=== PATIENT | female | born 1950 | race Caucasian/White ===

== ENCOUNTER 2016-10-14 08:28 | Emergency (ER) | payer BC, OTHER ==
[~2016-10-14] VITALS: Ht 157.5 cm; Wt 68.0 kg
[~2016-10-14 08:28] MED LIST: ACET-654 PO; CIPR250T3 PO; SYNT88TA2 PO
[2016-10-14] MEDS ORDERED: CEFD1CAP8 PO (08:39)
[2016-10-14] MEDS ORDERED: BENZ100C5 PO (08:39)
[2016-10-14] MEDS ORDERED: PRED10TA PO (08:39)
[2016-10-14 10:02] LABS: BASO % 0.4 % (0.0-1.0); EOS # 0.1 K/mm3 (0.0-0.50); EOS % 1.1 % (0.0-3.0); LARGE UNSTAINED CELL # 0.1 K/mm3 (0.0-0.4); LARGE UNSTAINED CELL % 0.7 % (0.0-4.0); LYMPH # 1.1 K/mm3 (1.5-4.5); MEAN CORPUSCULAR HEMOGLOBIN 26.6 pg (27.0-33.0); MEAN CORPUSCULAR HGB CONC 32.2 g/dl (32.0-36.5); MEAN CORPUSCULAR VOLUME 82.7 fl (80.0-96.0); MONO # 0.5 K/mm3 (0.0-0.8); MONO % 4.3 % (0.0-5.0); NEUTROPHILS # 9.4 K/mm3 (1.8-7.7); NEUTROPHILS % 84.5 % (36.0-66.0); PLATELET COUNT, AUTOMATED 330 k/mm3 (150-450); RED CELL DISTRIBUTION WIDTH 13.6 % (11.5-14.5); WHITE BLOOD COUNT 11.2 K/mm3 (4.0-10.0)
[2016-10-14 10:11] LABS: INR 0.82
--- NOTE | 2016-10-14 10:14 | REP ---
Noncontrast brain CT study: History: CVA. Comparison study July 20, 2013. CT findings: Bone window settings demonstrate an intact bony calvarium. Vascular calcifications again noted in the carotid siphons. Visualized paranasal sinuses are clear. Lateral digital kinesiology professor view is unremarkable. There is a stable 8 mm calcification at the anterior falx just to the right of midline again noted. This is consistent with the right pericallosal artery aneurysm described on the CT angiography of the brain from August 28, 2013. There is no evidence of intracranial hemorrhage. No extra-axial fluid collection is seen. No infarct is seen. No mass or midline shift is observed. Impression: Vascular calcification noted in the distal carotid arteries as previously described. 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 No acute intracranial lesion. Signed by Maurizio Joyner MD 10/14/2016 10:44 A
[2016-10-14 10:19] LABS: ANION GAP 8 MEQ/L (8-16); BLOOD UREA NITROGEN 14 MG/DL (7-18); CALCIUM LEVEL 9.1 MG/DL (8.8-10.2); CARBON DIOXIDE LEVEL 28 MEQ/L (21-32); CHLORIDE LEVEL 105 MEQ/L (98-107); CREATININE FOR GFR 0.82 MG/DL (0.55-1.02); FREE T4 1.55 NG/DL (0.76-1.46); GLOMERULAR FILTRATION RATE > 60.0 (>45); GLUCOSE, FASTING 103 MG/DL (80-110); POTASSIUM SERUM 4.1 MEQ/L (3.5-5.1); SODIUM LEVEL 141 MEQ/L (136-145)
--- NOTE | 2016-10-14 10:23 | REP ---
AP PORTABLE CHEST: 10/14/2016 COMPARISON: Chest x-ray 10/07/2016, 10/17/2012. FINDINGS: Lungs are well inflated and without infiltrate, effusion, atelectasis, or mass. CP angles sharply defined. No lateral pleural thickening. The heart, mediastinal and hilar contours are normal. Aorta intact and normal for age. Airway midline. There are minor degenerative changes of the AC joints and spine. No free air. IMPRESSION: 1. No acute cardiopulmonary disease. Stable chest. Signed by Malachi Smith MD 10/14/2016 03:29 P
--- NOTE | 2016-10-14 13:41 | REP ---
MRI study brain without contrast: History: TIA. Comparison brain MRI study is from March 24, 2007. Technique: Axial and sagittal imaging planes are utilized for T1 and T2-weighted scans. Sequences include spin-echo, fast spin echo, FLAIR, and diffusion weighted sequences. MRI findings: No bony calvarial lesion is seen. Craniocervical junction and upper cervical cord are normal in appearance. No intraorbital abnormality is seen. The skull base soft tissues are unremarkable and symmetric. There is no MR evidence of significant paranasal sinus disease. There are scattered T2 hyperintense foci in the periventricular and subcortical white matter of the supratentorial brain bilaterally. These are slightly more numerous but otherwise unchanged when compared with the prior exam of March 24, 2007. There is no evidence of intracranial hemorrhage. Diffusion-weighted scans show no evidence of acute ischemia. There is a flow void on T2-weighted scans in the known pericallosal artery aneurysm. This flow void measures 5 mm. There is also a flow void from the left middle cerebral artery trifurcation aneurysm. This is also unchanged from August 28, [address] angiography. There is no evidence of current or prior intracranial hemorrhage. No extra-axial fluid collection or infarction is seen. Impression: Two polanco aneurysms are again noted unchanged from comparison studies; right pericallosal artery, and left middle cerebral trifurcation aneurysms. There is no evidence of acute ischemia or hemorrhage. No acute intracranial abnormality. Signed by Maurizio Joyner MD 10/14/2016 02:37 P
[2016-10-14] MEDS ORDERED: ASPI81TA85 PO (13:51)
--- NOTE | 2016-10-14 13:52 | ECGEPIP ---
Stationary ECG Study [facility] - ED Test Date: 2016-10-14 Pat Name: LOW MONZON Department: Room: - Gender: F In[employer] Agent: : 1950 Requested By: Hussain Argueta Order Number: [id number] Reading MD: Ashley Prince Measurements Intervals [place] Rate: 67 P: 34 [place]: 165 QRS: 42 QRSD: 84 T: 42 QT: 396 QTc: 420 Interpretive Statements SINUS RHYTHM NO PRIOR FOR COMPARISON Electronically Signed On 10-14-2016 13:51:55 EDT by Ashley Prince
[2016-10-14 14:25] VITALS: BP 126/75
--- NOTE | 2016-10-16 06:44 | ED PDOC ---
Post-Departure Follow-Up dr wallace faxed formal report of ct head, mri brain for fu Maria E Lagos MD Oct 16, 2016 06:44
== END 2016-10-14 14:38 | disposition home or self-care (01) ==
LOC: M ED 10:25
DX: G45.9 Transient cerebral ischemic attack, unspecified (principal); F41.9 Anxiety disorder, unspecified; E78.5 Hyperlipidemia, unspecified; E03.9 Hypothyroidism, unspecified; Z79.82 Long term (current) use of aspirin; Z79.899 Other long term (current) drug therapy; Z79.52 Long term (current) use of systemic steroids; Z88.0 Allergy status to penicillin; Z88.2 Allergy status to sulfonamides; Z88.8 Allergy status to other drugs, medicaments and biological substances

== ENCOUNTER → 2016-10-22 | Outpatient (REF) | payer OTHER ==
[~2016-10-22] MED LIST changes: +ASPI81TA85 PO; +BENZ100C5 PO; +CEFD1CAP8 PO; +PRED10TA PO
[2016-10-22 18:06] LABS: ALBUMIN 3.4 GM/DL (3.2-5.2); ALBUMIN/GLOBULIN RATIO 1.06 (1.00-1.93); ALKALINE PHOSPHATASE 160 U/L (45-117); ALT/SGPT 25 U/L (12-78); ANION GAP 6 MEQ/L (8-16); AST/SGOT 12 U/L (15-37); BILIRUBIN,TOTAL 0.6 MG/DL (0.2-1.0); BLOOD UREA NITROGEN 12 MG/DL (7-18); CARBON DIOXIDE LEVEL 30 MEQ/L (21-32); CHLORIDE LEVEL 101 MEQ/L (98-107); CHOLESTEROL LEVEL 232 MG/DL (<200); CREATININE FOR GFR 0.85 MG/DL (0.55-1.02); GLOMERULAR FILTRATION RATE > 60.0 (>45); GLUCOSE, FASTING 101 MG/DL (80-110); POTASSIUM SERUM 4.2 MEQ/L (3.5-5.1); SODIUM LEVEL 137 MEQ/L (136-145); TOTAL PROTEIN 6.6 GM/DL (6.4-8.2); TRIGLYCERIDES LEVEL 119 MG/DL (<150)
== END ==
LOC: M SFHCCAPE 16:10
PROVIDERS: ATTEND Physician Assistant
DX: E78.2 Mixed hyperlipidemia (principal)

== ENCOUNTER 2017-01-13 12:46 | Observation (INO) | payer MEDICARE, BC, OTHER ==
[~2017-01-13] VITALS: Ht 157.5 cm; Wt 66.5 kg
[~2017-01-13 12:46] MED LIST changes: -PRED10TA PO; +PRED10TA2 PO
[2017-01-13] MEDS ORDERED: LEVO100T5 PO (13:04)
[2017-01-13 15:41] LABS: BASO % 0.4 % (0.0-1.0); EOS # 0.2 K/mm3 (0.0-0.50); EOS % 2.1 % (0.0-3.0); LARGE UNSTAINED CELL # 0.1 K/mm3 (0.0-0.4); LARGE UNSTAINED CELL % 1.2 % (0.0-4.0); LYMPH # 1.3 K/mm3 (1.5-4.5); LYMPH % 15.2 % (24.0-44.0); MEAN CORPUSCULAR HEMOGLOBIN 25.4 pg (27.0-33.0); MEAN CORPUSCULAR HGB CONC 32.5 g/dl (32.0-36.5); MEAN CORPUSCULAR VOLUME 78.1 fl (80.0-96.0); MONO # 0.4 K/mm3 (0.0-0.8); MONO % 4.8 % (0.0-5.0); NEUTROPHILS # 6.1 K/mm3 (1.8-7.7); NEUTROPHILS % 76.2 % (36.0-66.0); PLATELET COUNT, AUTOMATED 370 k/mm3 (150-450); RED CELL DISTRIBUTION WIDTH 14.3 % (11.5-14.5)
[2017-01-13] MEDS ORDERED: ASPI1TAB PO (15:42)
[2017-01-13] MEDS ORDERED: PROBCAP4 PO (15:42)
[2017-01-13] MEDS ORDERED: NASA1SPR (15:42)
[2017-01-13] MEDS ORDERED: SALI0.6523 (15:42)
[2017-01-13 15:48] LABS: INR 1.18
[2017-01-13 16:10] LABS: ANION GAP 8 MEQ/L (8-16); BLOOD UREA NITROGEN 10 MG/DL (7-18); CALCIUM LEVEL 9.3 MG/DL (8.8-10.2); CARBON DIOXIDE LEVEL 28 MEQ/L (21-32); CHLORIDE LEVEL 105 MEQ/L (98-107); CREATININE FOR GFR 0.74 MG/DL (0.55-1.02); GLOMERULAR FILTRATION RATE > 60.0 (>45); GLUCOSE, FASTING 100 MG/DL (80-110); POTASSIUM SERUM 3.9 MEQ/L (3.5-5.1); SODIUM LEVEL 141 MEQ/L (136-145)
--- NOTE | 2017-01-13 16:47 | REP ---
CT HEAD WITHOUT CONTRAST: HISTORY: Infarction. COMPARISON: 10/14/2016 Areas of decreased attenuation are present in the periventricular white matter. This represents small vessel ischemic disease. There is no intraparenchymal hemorrhage, mass or midline shift. The ventricular system is normal in appearance. There is no extracerebral collection. A small calcification is present in the anterior interhemispheric fissure in the region of the pericallosal arteries. This represents calcification in a known pericallosal artery aneurysm. The visualized sinuses are clear. IMPRESSION: 1. Small vessel ischemic disease. 2. There is a small calcification in the anterior interhemispheric fissure at the level of the pericallosal arteries. This represents calcification in a known pericallosal artery aneurysm. Signed by Kavon Iniguez MD 01/13/2017 04:54 P
[2017-01-13] MEDS ORDERED: ACETAMINOPHEN TAB 650MG DOSE (2X325MG) PO PRN (18:15)
[2017-01-13] MEDS ORDERED: BISACODYL 5 MG TAB PO PRN (18:15)
[2017-01-13] MEDS ORDERED: ONDANSETRON 4MG/2ML VIAL (J2405) IV PRN (18:15)
[2017-01-13] MEDS ORDERED: LACTOBACILLUS ACIDOPHILUS CAP (BACID) PO PRN (18:30)
--- NOTE | 2017-01-13 20:10 | REPUSA ---
CLINICAL HISTORY: R/o TIA. TECHNIQUE: MRI of the brain was performed without administration of intravenous contrast material. T1 spine echo, T2 fast spin echo, DWI and FLAIR sequences were obtained in sagittal, axial and coronal planes. FINDINGS: The sella and parasellar regions are unremarkable in appearance. The corpus callosum and cerebellar t onsils are of normal configuration and position. There are no intra or extra-axial collections. There is no mass effect or midline shift. There is no evidence of hematoma formation. There is no hydrocep halus. There is no restricted diffusion noted. The brain stem shows no mass effects, infarcts or hemorrhage. There are no cerebellopontine tumors. T he acoustic nerves are symmetrical. No cerebellar intra-axial pathology delineated. The fourth ventri gala and aqueduct are normal. No abnormalities of the optic nerves are identified. No dural or subdura l masses or collections are detected. There is evidence for generalized symmetrical dilatation of the ventricles and cortical sulci consist ent with parenchymal atrophy. There are bilateral periventricular and subcortical T2 and FLAIR hyperintensities compatible with chr onic white matter ischemic disease. The VII and VIII nerve bundles are visualized and are unremarkable in appearance. Mucosal thickening is seen involving bilateral ethmoid and maxillary sinuses compatible with chronic sinusitis. IMPRESSION: 1. Generalized age-appropriate parenchymal atrophy. 2. Bilateral periventricular and subcortical white matter chronic ischemic changes. 3. Chronic ethmoid and maxillary sinusitis. 4. No evidence of acute intracranial pathology. 5. Please see MRA report for additional chronic findings. Thank you for your kind referral of this patient.
--- NOTE | 2017-01-13 20:40 | REPUSA ---
CLINICAL HISTORY: Arm numbness, possible TIA, aneurysm. TECHNIQUE: MRA of the [place] of [place] was performed utilizing 3D [id number] technique without I V contrast material. COMMENTS: Comparison is made with the prior study dated 07/20/2013. Note again is made of a 7 x 5 mm aneurysm originated from the left middle cerebral artery trifurcatio n. There is another small aneurysm originated from the cavernous right ICA measuring approximately 2 mm. The supraclinoid portions of the internal carotid arteries are otherwise of normal shape. The normal bifurcation is seen. The middle cerebral arteries are otherwise unremarkable in appearance. The po sterior circulation is visualized and shows no evidence of occlusion or aneurysm formation. The basi lar tip is seen and shows no aneurysm formation. There is no evidence of beading to suggest vasculit is. IMPRESSION: No interval change. 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 There is another sma ll aneurysm originated from the cavernous right ICA measuring approximately 2 mm. Thank you for your kind referral of this patient. We appreciate the opportunity to participate in thi s patient's care.
[2017-01-13 21:05] VITALS: BP 138/65
--- NOTE | 2017-01-13 21:56 | ECGEPIP ---
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
[2017-01-13 23:59] VITALS: BP 134/59
[2017-01-14] MEDS ORDERED: SLF 3 ML SYR IV PRN (04:30)
[2017-01-14 04:45] VITALS: BP 108/54
[2017-01-14] MEDS ORDERED: SLF 3 ML SYR IV SCH (06:00)
[2017-01-14] MEDS ORDERED: LEVOTHYROXINE 100MCG TABLET (0.1MG) PO SCH (06:00)
[2017-01-14 06:26] LABS: BASO % 0.5 % (0.0-1.0); EOS # 0.2 K/mm3 (0.0-0.50); LARGE UNSTAINED CELL # 0.1 K/mm3 (0.0-0.4); LARGE UNSTAINED CELL % 1.8 % (0.0-4.0); LYMPH # 1.2 K/mm3 (1.5-4.5); LYMPH % 14.9 % (24.0-44.0); MEAN CORPUSCULAR HEMOGLOBIN 25.1 pg (27.0-33.0); MEAN CORPUSCULAR HGB CONC 31.9 g/dl (32.0-36.5); MEAN CORPUSCULAR VOLUME 78.6 fl (80.0-96.0); MONO # 0.5 K/mm3 (0.0-0.8); MONO % 5.7 % (0.0-5.0); PLATELET COUNT, AUTOMATED 351 k/mm3 (150-450); RED CELL DISTRIBUTION WIDTH 14.3 % (11.5-14.5)
[2017-01-14 06:49] LABS: ALBUMIN 2.9 GM/DL (3.2-5.2); ALBUMIN/GLOBULIN RATIO 0.71 (1.00-1.93); ALKALINE PHOSPHATASE 133 U/L (45-117); ALT/SGPT 21 U/L (12-78); ANION GAP 5 MEQ/L (8-16); AST/SGOT 13 U/L (15-37); BILIRUBIN,TOTAL 0.4 MG/DL (0.2-1.0); BLOOD UREA NITROGEN 10 MG/DL (7-18); CALCIUM LEVEL 9.3 MG/DL (8.8-10.2); CARBON DIOXIDE LEVEL 29 MEQ/L (21-32); CHLORIDE LEVEL 104 MEQ/L (98-107); CREATININE FOR GFR 0.63 MG/DL (0.55-1.02); GLOMERULAR FILTRATION RATE > 60.0 (>45); GLUCOSE, FASTING 92 MG/DL (80-110); POTASSIUM SERUM 3.9 MEQ/L (3.5-5.1); SODIUM LEVEL 138 MEQ/L (136-145)
--- NOTE | 2017-01-14 07:26 | HPE ---
DATE OF ADMISSION: 01/13/2017 PRIMARY CARE PROVIDER: Donna Young at [place] NEUROLOGIST: Dr. Millan OFFSHORING MANAGER: Dr. Blanton NEUROSURGEON: Dr. Gil who was last seen three years ago. CHIEF COMPLAINT: Right upper extremity numbness and tingling. HISTORY OF PRESENT ILLNESS: Ms. Suarez is a 66-year-old female who was driving this afternoon at around 1:30 when she noticed numbness and tingling on her left fingers. The patient expressed that numbness and tingling continued to expand to her wrist and middle of her left forearm. The patient expressed that episode lasted about 10 to 15 minutes. When this has happened the patient expressed that she decided to come to the ER. The patient was driving with his son and his son did not notice any confusion, dysarthria, dystonia. The patient also was not confused. Did not loss her consciousness. The patient did not lose bowel or bladder control. The patient did not have aphasia, however, the patient was mildly scared due to presentation of symptoms. The patient, however, expressed that in the morning around 7:30 she had near-syncope around 7:30 a.m. when she was sitting down and playing with her tablet, playing chess on her tablet. The patient expressed that it only lasted for a few minutes when she had lightheadedness and dizziness as well as her vision going blank. The patient expressed that these symptoms started about in July, however, for the past two weeks, it happens on and off, however, for the past two weeks and is not related to her position and it could happen in any position, however, she has noticed that it mostly happens when she looks down and looks straight. The patient has been diagnosed with brain aneurysm and is seen by Dr. Gil three years ago, who is a neurosurgeon. He offered the patient a surgical solution, however, the patient rejected. The patient only seen by Dr. Millan recently who offered her sleep study, however, the patient refused because the patient expressed that she cannot sleep anywhere else besides her home. The patient's latest MRI is on 10/14/2016, which indicated two polanco aneurysms which are unchanged from comparison studies to March 24, 2007. The patient denies nausea or vomiting during the numbness of her right upper extremity this afternoon. The patient also denies vision changes or hearing changes. The patient denies any numbness or weakness in her lower extremities or her left upper extremity. ALLERGIES: PENICILLIN causes rash. MACROBID causes rash. SULFA causes rash. ZETIA causes bloating. PAST MEDICAL HISTORY: 1. Hypothyroidism. 2. Hyperlipidemia. 3. Transient ischemic attack (TIA). PAST SURGICAL HISTORY: 1. Tonsillectomy. 2. Colonoscopy. 3. Angiogram [facility] of the right lower extremity in November 2012. SOCIAL HISTORY: The patient lives with her and her son. The patient expressed that she only smoked when she was 19 years old for one year about 3 to 4 cigarettes a day. The patient expressed that she drinks alcohol occasionally. The patient denies illicit drug use. The patient has no pets. The patient had traveled to [place]. The patient two sons who are healthy. FAMILY HISTORY: The patient has two sisters and five brothers, however, the patient expressed that she believes that they are healthy. The patient's father is still alive, however, the patient does not know about his health. The patient's mother lives with her sister, however, the patient does not know about her health. HOME MEDICATIONS: - aspirin 81 mg by mouth daily - probiotics 1 capsule by mouth daily as needed constipation - Synthroid 100 mcg by mouth daily - Nasacort allergy one spray NA daily - saline nasal spray 1 spray NA daily REVIEW OF SYSTEMS: REVIEW OF SYSTEMS: GENERAL: The patient denies fevers, chills, night sweats, weight loss, weight gain. HEENT: At this time the patient denies acute vision or hearing changes. The patient also denies lightheadedness and dizziness, however, this morning, around 7:00 a.m. the patient has a history of near-syncope episode. However, the patient denies losing her consciousness. The patient denies acute problem with chewing food or sinusitis. NECK: The patient has no loss of motion of her neck. HEART: The patient denies palpitations, racing, or skipping heartbeat, chest pain. LUNGS: The patient denies shortness of breath, wheezing or coughing. ABDOMEN: The patient denies abdominal pain, nausea, vomiting, diarrhea, constipation, melena, hematochezia or hematemesis. EXTREMITIES: The patient denies swelling, numbness or tingling of her upper or lower extremities, however, around 1:30 the patient has numbness and tingling of her right upper extremity. NEUROLOGICAL: The patient has been diagnosed with TIA, however, the patient denies history of CVA type activities. PHYSICAL EXAMINATION: VITAL SIGNS: Temperature 98.5, pulse 84, respiratory rate 18, blood pressure 165/74, pulse oximetry 95 on room air. GENERAL APPEARANCE: The patient was lying in bed, in no acute distress. The patient was awake, alert and oriented to time, place and person. HEENT: Normocephalic, atraumatic. Pupils equal reactive to light. Oral mucosa is moist. NECK: Soft, supple. No lymphadenopathy or thyromegaly. No jugular venous distention (JVD). HEART: Regular rate and rhythm. Normal S1, S2. ABDOMEN: Soft, nontender. Positive bowel sounds in all quadrants. EXTREMITIES: No lower extremity edema. +2 pulses in both lower extremities. The patient has normal range of motion both upper and lower extremities. NEUROLOGICAL: Cranial nerves II through XII was intact. No focal deficiencies. LUNGS: Clear breath sounds bilaterally. Equal air movement. LABORATORY DATA: WBC 8, RBC 4.94, hemoglobin 12.5, hematocrit 36.6, MCV 78.1, MCH 25.4, MCHC 32.5, RDW 14.3, platelet count 370, neutrophil percentage 76.2, lymphocyte percentage 15.2, monocyte percentage 4.8, eosinophil percentage 2.1, basophil percentage 0.4, leucocyte percentage 1.2. PT 15.2, INR 1.18, APTT 28.6. Sodium 141, potassium 3.9, chloride 105, carbon dioxide 28, anion gap 8, BUN 10, creatinine 0.74. Glomerular filtration rate more than 60. Fasting glucose 100. Calcium 9.3. Total creatine kinase 67. CK-MB 1. CK-MB Rel index 1.49. Troponin I less than 0.02. IMAGING TECHNIQUES: CT of the head without contrast shows small vessel ischemic disease. There is a small calcification in the anterior interhemispheric fissure at the level of the pericallosal arteries. This represents calcifications. Is a known pericallosal artery aneurysm. ASSESSMENT AND PLAN: 1. Numbness and tingling of the right upper extremity. This could be secondary to aneurysms. That was indicated in the MRI on the previous studies. Due to increase of her symptoms it is possible that the size of the aneurysm has been changing. Therefore we have ordered MRI/MRA of the head and the result is pending at this time. Also it is possible that patient has been experiencing TIA. Other possibilities include carpal tunnel syndrome. We have requested medical file to be transferred from Dr. Millan's office (neurology) and Dr. Blanton (cardiology). Cardiac marker was negative. EKG shows sinus rhythm. We will repeat the cardiac marker for one more study in six hours. CT did not show any hemorrhagic finding. At this time we will continue patient on aspirin 81 mg. The patient has not been started on statin due to having allergic reaction to a statin. Also, the patient is admitted to PCU and we will continue with neuro check every 4 hours. 2. Hypothyroidism. Will continue the patient on home dosage of Synthroid (100 mcg by mouth daily). Also I have ordered TSH level and the result is pending at this time. 3. Deep venous thrombosis (DVT) prophylaxis. The patient is on Lovenox. 4. History of hyperlipidemia. Lipid panel which was done on 10/22/2016 indicated cholesterol of 232 and LDL cholesterol of 149.2. At this time the patient is not on statin due to allergic reaction (muscle ache). We will continue the patient on aspirin. 5. Near-syncope episodes. The patient is following with Dr. Blanton. We have requested the medical records to be transferred. The patient admitted to the PCU. EKG shows sinus rhythm. Cardiac marker was negative. Dr. Blanton has performed echocardiogram as well as stress test. We will followup with the medical file. At this time, the patient is stable.
[2017-01-14 09:00] VITALS: BP 118/60
[2017-01-14] MEDS ORDERED: ASPIRIN 81 MG ENTERIC TAB PO SCH (09:00)
[2017-01-14] MEDS ORDERED: PREVNAR 13 VACCINE SYRINGE (CPT CODE:90670) IM ONE (09:00)
[2017-01-14] MEDS ORDERED: ENOXAPARIN 40 MG/0.4 ML SYRINGE (J1650) SC SCH (21:00)
--- NOTE | 2017-01-15 06:42 | DSES ---
DATE OF ADMISSION: 01/13/2017 DATE OF DISCHARGE: 01/14/2017 PRIMARY CARE PHYSICIAN: Donna Young MD at [place] NEUROLOGISTS: Dr. Millan MANAGER ANIMATION: Cristian Blanton MD NEUROSURGEON: Dr. Gil, seen three years ago. PRIMARY DISCHARGE DIAGNOSIS: 1. Right upper extremity numbness and tingling. Negative cerebrovascular accident (CVA) on Magnetic Resonance Imaging (MRI). Possible transient ischemic attack (TIA) with all symptoms resolved at discharge. 2. Chronic maxillary sinusitis. 3. 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 4. 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 5. Hypertension. 6. Hyperlipidemia. DISCHARGE MEDICATIONS: - aspirin 81 mg daily - Synthroid 100 mcg daily - Nasacort one spray daily - saline nasal spray one spray daily HOSPITAL COURSE: This is a 66-year-old female with history of hypertension, transient ischemic attack (TIA), hyperlipidemia, presents to the emergency room with complaints of right upper extremity numbness and tingling, starting at 1:30 p.m. lasting for about 10 to 15 minutes while she was driving her son. No loss of consciousness. No aphasia. No upper and lower extremity weakness. The patient refused surgical resection of her chronic aneurysms and had been seen by Dr. Gil in [place] three years ago, neurosurgery. At this time, the patient was worked up for possible cerebrovascular accident (CVA) or transient ischemic attack (TIA), Magnetic Resonance Imaging (MRI), Magnetic Resonance Angiography (MRA). She has no acute cerebrovascular accident (CVA). The patient does have a known chronic maxillary and ethmoid sinusitis. Magnetic Resonance Angiography (MRA) of the brain shows aneurysm 7 x 5 mm in the left middle cerebral artery trifurcation with another small one in the cavernous right internal carotid artery measuring 2 mm. She was instructed to follow up with Dr. Gil as an outpatient to reconsider surgical resection. LABORATORY ON DISCHARGE: White count 8, hemoglobin 12, hematocrit 38, platelet count is 351. Sodium 138, potassium 3.8, chloride 104, bicarbonate 29, BUN 10, creatine 0.63, glucose of 92. IMAGING STUDY: Magnetic Resonance Imaging (MRI) of the brain: No acute cerebrovascular accident (CVA). Bilateral paraventricular subcortical white matter chronic ischemic changes. Chronic ethmoid, maxillary sinusitis. Magnetic Resonance Angiography (MRA) chronic findings: Magnetic Resonance Angiography (MRA) of the brain shows 7 x 5 mm aneurysm of left middle cerebral artery trifurcation, small aneurysm cavernous right internal carotid artery measuring 2 mm. TIME SPENT ON DISCHARGE: 30 minutes.
== END 2017-01-14 12:21 | disposition home or self-care (01) ==
LOC: M ED 12:46 → M ED INP 18:09 → M PCU 21:06
PROVIDERS: ADMIT Internal Medicine; ATTEND General Practice
DX: R20.8 Other disturbances of skin sensation (principal); G45.9 Transient cerebral ischemic attack, unspecified; J32.0 Chronic maxillary sinusitis; I67.1 Cerebral aneurysm, nonruptured; I10 Essential (primary) hypertension; E78.4 Other hyperlipidemia; Z79.82 Long term (current) use of aspirin; E03.9 Hypothyroidism, unspecified; R55 Syncope and collapse; Z23 Encounter for immunization; Z79.899 Other long term (current) drug therapy; Z88.0 Allergy status to penicillin; Z88.2 Allergy status to sulfonamides; Z88.8 Allergy status to other drugs, medicaments and biological substances; Z87.891 Personal history of nicotine dependence
CPT/HCPCS: 36415; 70450; 70544; 70551; 80048; 80053; 82550; 82553; 84443; 84484; 85025; 85610; 85730; 86850; 86900; 86901; 90471; 90670; 93005; 93041; 94760; 97161; 99285; G0378; G8978; G8979; G8980

== ENCOUNTER → 2017-02-17 | Outpatient (REF) | payer MEDICARE, OTHER ==
[~2017-02-17] MED LIST changes: +ASPI1TAB PO; +LEVO100T5 PO; +NASA1SPR; +PROBCAP4 PO; +SALI0.6523
== END ==
LOC: M LAB REF 16:26
PROVIDERS: ATTEND Psychiatry & Neurology Neurology
DX: I63.9 Cerebral infarction, unspecified (principal)

== ENCOUNTER → 2017-02-17 | Outpatient (REF) | payer MEDICARE, OTHER | LOC: M LAB REF 16:24 | PROVIDERS: ATTEND Internal Medicine Endocrinology, Diabetes & Metabolism | DX: E03.9 Hypothyroidism, unspecified (principal) ==

== ENCOUNTER → 2017-11-30 | Outpatient (REF) | payer MEDICARE, OTHER ==
[2017-11-30 18:47] LABS: BASO % 0.5 % (0.0-1.0); EOS # 0.2 10^3/uL (0.0-0.50); EOS % 3.3 % (0.0-3.0); HEMATOCRIT 43.4 % (36.0-47.0); HEMOGLOBIN 13.6 g/dl (12.0-15.5); IMMATURE GRANULOCYTE % 0.3 % (0-3.0); LYMPH # 1.2 10^3/uL (1.5-4.5); MEAN CORPUSCULAR HGB CONC 31.3 g/dl (32.0-36.5); MEAN CORPUSCULAR VOLUME 86.1 fl (80.0-96.0); MONO # 0.5 10^3/uL (0.0-0.8); MONO % 7.5 % (0.0-5.0); NEUTROPHILS # 4.4 10^3/uL (1.8-7.7); NEUTROPHILS % 69.4 % (36.0-66.0); PLATELET COUNT, AUTOMATED 249 10^3/uL (150-450); RED BLOOD COUNT 5.04 10^6/uL (4.00-5.40); RED CELL DISTRIBUTION WIDTH 15.1 % (11.5-14.5); WHITE BLOOD COUNT 6.4 10^3/uL (4.0-10.0)
[2017-11-30 18:58] LABS: ALBUMIN 3.8 GM/DL (3.2-5.2); ALBUMIN/GLOBULIN RATIO 1.23 (1.00-1.93); ALKALINE PHOSPHATASE 173 U/L (45-117); ALT/SGPT 27 U/L (12-78); ANION GAP 7 MEQ/L (8-16); AST/SGOT 16 U/L (7-37); BILIRUBIN,TOTAL 0.4 MG/DL (0.2-1.0); BLOOD UREA NITROGEN 10 MG/DL (7-18); CARBON DIOXIDE LEVEL 28 MEQ/L (21-32); CHLORIDE LEVEL 107 MEQ/L (98-107); CHOLESTEROL LEVEL 263 MG/DL (<200); CHOLESTEROL RISK RATIO 6.414 (<5); CREATININE FOR GFR 0.92 MG/DL (0.55-1.30); GLOMERULAR FILTRATION RATE > 60.0 (>45); GLUCOSE, FASTING 92 MG/DL (70-100); HDL CHOLESTEROL 41 MG/DL (>40); LDL CHOLESTEROL 162.2 MG/DL (<100); NON-HDL-C 222 MG/DL; POTASSIUM SERUM 4.2 MEQ/L (3.5-5.1); SODIUM LEVEL 142 MEQ/L (136-145); TOTAL PROTEIN 6.9 GM/DL (6.4-8.2); TRIGLYCERIDES LEVEL 299 MG/DL (<150)
== END ==
LOC: M SFHCCAPE 07:06
DX: E78.5 Hyperlipidemia, unspecified (principal); E03.9 Hypothyroidism, unspecified
CPT/HCPCS: 84443

== ENCOUNTER → 2017-12-14 | Outpatient (REF) | payer MEDICARE, OTHER ==
[2017-12-14 16:54] LABS: ALKALINE PHOSPHATASE 156 U/L (45-117); GAMMA GLUTAMYLTRANSPEPTIDASE 33 U/L (5-55)
[2017-12-14 18:06] LABS: LABILE ALKPHOS 93 U/L; STABLE ALKPHOS 63 U/L
[2017-12-14 18:08] LABS: % LABILE ALKALINE PHOSPHATASE 59.6 %
== END ==
LOC: M SFHCCAPE 07:52
DX: R74.8 Abnormal levels of other serum enzymes (principal)
CPT/HCPCS: 84078

== ENCOUNTER → 2017-12-21 | Outpatient (REF) | payer MEDICARE, OTHER ==
[2017-12-24 00:10] LABS: H PYLORI STOOL ANTIGEN Negative (Negative)
== END ==
LOC: M LAB REF 16:57
DX: R14.1 Gas pain (principal); Z86.010 Personal history of colon polyps
CPT/HCPCS: 87338

== ENCOUNTER → 2018-12-01 | Outpatient (REF) | payer MEDICARE, OTHER ==
[~2018-12-01] MED LIST changes: -ASPI1TAB PO; +ASPI81TA26 PO; +BENZ-18 PO; -BENZ100C5 PO; -SALI0.6523; +SALI0.6528
[2018-12-01 17:19] LABS: ALBUMIN 3.5 GM/DL (3.2-5.2); ALT/SGPT 31 U/L (12-78); BILIRUBIN,TOTAL 0.6 MG/DL (0.2-1.0); BLOOD UREA NITROGEN 9 MG/DL (7-18); CALCIUM LEVEL 8.9 MG/DL (8.8-10.2); CARBON DIOXIDE LEVEL 30 MEQ/L (21-32); CHLORIDE LEVEL 107 MEQ/L (98-107); CHOLESTEROL LEVEL 244 MG/DL (<200); CREATININE FOR GFR 0.86 MG/DL (0.55-1.30); GAMMA GLUTAMYLTRANSPEPTIDASE 37 U/L (5-55); GLOMERULAR FILTRATION RATE > 60.0 (>45); GLUCOSE, FASTING 98 MG/DL (70-100); HDL CHOLESTEROL 40 MG/DL (>40); LDL CHOLESTEROL 165 MG/DL (<100); NON-HDL-C 204 MG/DL; POTASSIUM SERUM 4.3 MEQ/L (3.5-5.1); SODIUM LEVEL 142 MEQ/L (136-145); THYROID STIMULATING HORMONE 0.755 uIU/ML (0.358-3.740); TOTAL PROTEIN 6.7 GM/DL (6.4-8.2); TRIGLYCERIDES LEVEL 193 MG/DL (<150)
[2018-12-01 17:31] LABS: BASO % 0.5 % (0.0-1.0); EOS # 0.2 10^3/uL (0.0-0.50); EOS % 3.2 % (0.0-3.0); HEMATOCRIT 44.3 % (36.0-47.0); HEMOGLOBIN 14.2 g/dl (12.0-15.5); LYMPH # 1.2 10^3/uL (1.5-4.5); LYMPH % 19.9 % (24.0-44.0); MEAN CORPUSCULAR HEMOGLOBIN 28.7 pg (27.0-33.0); MEAN CORPUSCULAR HGB CONC 32.1 g/dl (32.0-36.5); MEAN CORPUSCULAR VOLUME 89.5 fl (80.0-96.0); MONO # 0.4 10^3/uL (0.0-0.8); MONO % 6.7 % (0.0-5.0); NEUTROPHILS # 4.2 10^3/uL (1.8-7.7); NEUTROPHILS % 69.4 % (36.0-66.0); PLATELET COUNT, AUTOMATED 215 10^3/uL (150-450); RED BLOOD COUNT 4.95 10^6/uL (4.00-5.40)
[2018-12-01 17:38] LABS: HEMOGLOBIN A1c 5.9 %
== END ==
LOC: M SFHCCAPE 07:22
PROVIDERS: ATTEND Physician Assistant
DX: E78.5 Hyperlipidemia, unspecified (principal); E03.9 Hypothyroidism, unspecified; R74.8 Abnormal levels of other serum enzymes; R73.9 Hyperglycemia, unspecified

== ENCOUNTER → 2019-01-11 | Outpatient (REF) | payer MEDICARE, OTHER ==
[2019-01-11 17:57] LABS: FREE T4 1.42 NG/DL (0.76-1.46); THYROID STIMULATING HORMONE 1.68 uIU/ML (0.358-3.740)
[2019-01-14 08:22] LABS: Alkaline Phosphatase Iso-Bone 55 % (14-68); Alkaline Phosphatase Iso-Intes 9 % (0-18); Alkaline Phosphatase Iso-Liver 36 % (18-85); TOTAL ALK PHOS 123 IU/L (39-117)
== END ==
LOC: M SFHCCAPE 07:45
PROVIDERS: ATTEND Physician Assistant
DX: R74.8 Abnormal levels of other serum enzymes (principal); E03.9 Hypothyroidism, unspecified

== ENCOUNTER → 2019-07-18 | Outpatient (REF) | payer MEDICARE, OTHER ==
[2019-07-18 16:33] LABS: BASO # 0.1 10^3/uL (0.0-0.2); BASO % 0.7 % (0.0-1.0); EOS # 0.2 10^3/uL (0.0-0.5); HEMATOCRIT 45.6 % (36.0-47.0); HEMOGLOBIN 13.7 g/dl (12.0-15.5); LYMPH # 1.5 10^3/uL (1.5-5.0); LYMPH % 21.6 % (24.0-44.0); MEAN CORPUSCULAR HEMOGLOBIN 26.8 pg (27.0-33.0); MEAN CORPUSCULAR VOLUME 89.2 fl (80.0-96.0); MONO # 0.5 10^3/uL (0.0-0.8); MONO % 7.2 % (0.0-5.0); NEUTROPHILS # 4.7 10^3/uL (1.5-8.5); NEUTROPHILS % 67.1 % (36.0-66.0); PLATELET COUNT, AUTOMATED 243 10^3/uL (150-450); RED BLOOD COUNT 5.11 10^6/uL (4.00-5.40); WHITE BLOOD COUNT 7.1 10^3/uL (4.0-10.0)
[2019-07-18 16:40] LABS: ALBUMIN 3.7 GM/DL (3.2-5.2); ALT/SGPT 23 U/L (12-78); BILIRUBIN,TOTAL 0.4 MG/DL (0.2-1.0); BLOOD UREA NITROGEN 9 MG/DL (7-18); CALCIUM LEVEL 9.1 MG/DL (8.8-10.2); CARBON DIOXIDE LEVEL 27 MEQ/L (21-32); CHLORIDE LEVEL 107 MEQ/L (98-107); CHOLESTEROL LEVEL 262 MG/DL (<200); CHOLESTEROL RISK RATIO 5.822 (<5); CREATININE FOR GFR 0.93 MG/DL (0.55-1.30); FREE T4 1.39 NG/DL (0.76-1.46); GLOMERULAR FILTRATION RATE > 60.0 (>45); GLUCOSE, FASTING 87 MG/DL (70-100); HDL CHOLESTEROL 45 MG/DL (>40); LDL CHOLESTEROL 179 MG/DL (<100); NON-HDL-C 217 MG/DL; POTASSIUM SERUM 4.3 MEQ/L (3.5-5.1); SODIUM LEVEL 142 MEQ/L (136-145); TRIGLYCERIDES LEVEL 192 MG/DL (<150)
[2019-07-18 16:58] LABS: HEMOGLOBIN A1c 6.2 %
== END ==
LOC: M SFHCCAPE 06:59
PROVIDERS: ATTEND Physician Assistant
DX: E03.9 Hypothyroidism, unspecified (principal); R74.8 Abnormal levels of other serum enzymes; Z79.899 Other long term (current) drug therapy

== ENCOUNTER → 2019-08-07 | Outpatient (REF) | payer MEDICARE, OTHER ==
[2019-08-07 17:27] LABS: C REACTIVE PROTEIN QUANTITATIV 1.52 MG/DL (0.00-0.30); RHEUMATOID FACTOR QUANT 10.8 IU/ML (<15.0)
[2019-08-10 00:06] LABS: ANA (HEP2) Negative (.); CYCLIC CITRULLINATED PEPTIDE 166 units (0-19); Lyme Disease IgG/IgM Antibodie <0.91 ISR (0.00-0.90); Lyme Disease IgM Ab Quantitati <0.80 index (0.00-0.79)
== END ==
LOC: M SFHCCAPE 08:55
PROVIDERS: ATTEND Physician Assistant
DX: M35.3 Polymyalgia rheumatica (principal); R74.8 Abnormal levels of other serum enzymes
CPT/HCPCS: 36415; 82550; 84078; 85652; 86038; 86140; 86200; 86431; 86617; G0463

== ENCOUNTER 2019-08-28 18:40 | Emergency (ER) | payer MEDICARE, BC, OTHER ==
[~2019-08-28] VITALS: Ht 157.5 cm; Wt 72.9 kg
[2019-08-28 19:27] VITALS: BP 154/82
--- NOTE | 2019-08-28 19:30 | REPVR ---
PROCEDURE INFORMATION: Exam: CT Head Without Contrast Exam date and time: 08/28/2019 6:55 PM Age: 69 years old Clinical indication: Numbness / parasthesia; Left; Additional info: Left sided numbness and tingling TECHNIQUE: Imaging protocol: Computed tomography of the head without contrast. Radiation optimization: All CT scans at this facility use at least one of these dose optimization techniques: automated exposure control; mA and/or kV adjustment per patient size (includes targeted exams where dose is matched to clinical indication); or iterative reconstruction. COMPARISON: CT Head without contrast 01/13/2017 3:15 PM FINDINGS: Brain: Decreased attenuation of the supratentorial white matter is likely secondary to chronic microvascular ischemia. No acute intracranial hemorrhage. Right parafalcine partially calcified lesion measuring 7 mm is stable from prior examination. Ventricles: Ventricular and subarachnoid spaces are age appropriate. Bones/joints: Unremarkable. No acute fracture. Sinuses: Visualized sinuses are unremarkable. No fluid levels. Mastoid air cells: Visualized mastoid air cells are well aerated. Soft tissues: Unremarkable. Vasculature: Intracranial vascular calcification. IMPRESSION: No acute intracranial abnormality. Electronically signed by: Brandon Jansen On 08/28/2019 19:30:03 PM
[2019-08-28 19:32] LABS: BASO % 0.5 % (0.0-1.0); EOS # 0.3 10^3/uL (0.0-0.5); EOS % 3.3 % (0.0-3.0); HEMATOCRIT 42.6 % (36.0-47.0); HEMOGLOBIN 13.5 g/dl (12.0-15.5); LYMPH # 1.8 10^3/uL (1.5-5.0); MEAN CORPUSCULAR HEMOGLOBIN 27.1 pg (27.0-33.0); MEAN CORPUSCULAR HGB CONC 31.7 g/dl (32.0-36.5); MEAN CORPUSCULAR VOLUME 85.5 fl (80.0-96.0); MONO # 0.7 10^3/uL (0.0-0.8); MONO % 8.6 % (0.0-5.0); NEUTROPHILS # 4.9 10^3/uL (1.5-8.5); NEUTROPHILS % 64.2 % (36.0-66.0); PLATELET COUNT, AUTOMATED 257 10^3/uL (150-450); RED BLOOD COUNT 4.98 10^6/uL (4.00-5.40); WHITE BLOOD COUNT 7.7 10^3/uL (4.0-10.0)
[2019-08-28 19:35] LABS: INR 1.02; PROTHROMBIN TIME 13.1 SECONDS (11.8-14.0)
[2019-08-28 19:36] LABS: PARTIAL THROMBOPLASTIN TIME 26.3 SECONDS (25.0-38.4)
[2019-08-28 19:50] VITALS: BP 142/68
[2019-08-28 19:52] LABS: CK-MB VALUE MASS < 1.0 NG/ML (<3.6); CPK CREATINE PHOSPHOKINASE 62 U/L (26-192); MB/CK RELATIVE INDEX 1.61 (< OR =4); TROPONIN I < 0.02 NG/ML (< 0.10)
[2019-08-28] MEDS ORDERED: NS 500 ML IV ONE (20:15)
[2019-08-28 20:30] VITALS: BP 126/66
[2019-08-28 20:54] VITALS: BP 126/66
[2019-08-28 21:11] LABS: INFLUENZA A AMPLIFICATION NEGATIVE (NEGATIVE); INFLUENZA B AMPLIFICATION NEGATIVE (NEGATIVE)
--- NOTE | 2019-08-28 21:41 | ECGEPIP ---
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
--- NOTE | 2019-08-29 07:39 | REP ---
Portable chest, 07:26 p.m., single AP view with the patient upright: Comparison is 10/14/2016. The lung ruiz are clear. The cardiac size is normal. The alexandra, mediastinum, and skeletal structures are unremarkable. Impression: Negative portable chest. There is no interval change. Electronically Signed by Gerard Pisano MD 08/29/2019 07:31 A
== END 2019-08-28 23:05 | disposition home or self-care (01) ==
LOC: M ED 18:40
DX: R20.2 Paresthesia of skin (principal); Z88.0 Allergy status to penicillin; Z88.2 Allergy status to sulfonamides; Z88.8 Allergy status to other drugs, medicaments and biological substances

== ENCOUNTER → 2019-09-14 | Outpatient (REF) | payer MEDICARE, OTHER ==
[2019-09-14 17:01] LABS: BASO % 0.6 % (0.0-1.0); EOS # 0.2 10^3/uL (0.0-0.5); EOS % 3.4 % (0.0-3.0); HEMATOCRIT 43.9 % (36.0-47.0); HEMOGLOBIN 13.9 g/dl (12.0-15.5); LYMPH # 1.2 10^3/uL (1.5-5.0); LYMPH % 18.5 % (24.0-44.0); MEAN CORPUSCULAR HEMOGLOBIN 27.5 pg (27.0-33.0); MEAN CORPUSCULAR HGB CONC 31.7 g/dl (32.0-36.5); MEAN CORPUSCULAR VOLUME 86.9 fl (80.0-96.0); MONO # 0.5 10^3/uL (0.0-0.8); NEUTROPHILS # 4.7 10^3/uL (1.5-8.5); NEUTROPHILS % 69.4 % (36.0-66.0); PLATELET COUNT, AUTOMATED 299 10^3/uL (150-450); RED BLOOD COUNT 5.05 10^6/uL (4.00-5.40); WHITE BLOOD COUNT 6.7 10^3/uL (4.0-10.0)
[2019-09-14 17:08] LABS: ALBUMIN 3.6 GM/DL (3.2-5.2); ALT/SGPT 26 U/L (12-78); BILIRUBIN,TOTAL 0.5 MG/DL (0.2-1.0); BLOOD UREA NITROGEN 10 MG/DL (7-18); C REACTIVE PROTEIN QUANTITATIV 1.46 MG/DL (0.00-0.30); CALCIUM LEVEL 9.5 MG/DL (8.8-10.2); CARBON DIOXIDE LEVEL 29 MEQ/L (21-32); CHLORIDE LEVEL 108 MEQ/L (98-107); GLOMERULAR FILTRATION RATE > 60.0 (>45); GLUCOSE, FASTING 94 MG/DL (70-100); POTASSIUM SERUM 4.4 MEQ/L (3.5-5.1); SODIUM LEVEL 142 MEQ/L (136-145); TOTAL PROTEIN 6.9 GM/DL (6.4-8.2)
[2019-09-14 17:19] LABS: CHOLESTEROL RISK RATIO 5.621 (<5); FREE T4 1.6 NG/DL (0.76-1.46); THYROID STIMULATING HORMONE 0.337 uIU/ML (0.358-3.740)
[2019-09-14 17:38] LABS: HEMOGLOBIN A1c 5.9 %
[2019-09-14 19:03] LABS: ERYTHROCYTE SEDIMENTATION RATE 37 mm/hr (0-30)
== END ==
LOC: M SFHCCAPE 07:41
PROVIDERS: ATTEND Physician Assistant
DX: M35.3 Polymyalgia rheumatica (principal); R76.8 Other specified abnormal immunological findings in serum; E03.9 Hypothyroidism, unspecified; R73.09 Other abnormal glucose

== ENCOUNTER → 2019-12-11 | Outpatient (CLI) | payer MEDICARE, OTHER | LOC: M WUC 08:25 | PROVIDERS: ATTEND Internal Medicine | DX: M35.3 Polymyalgia rheumatica (principal) ==

== ENCOUNTER → 2019-12-19 | Outpatient (CLI) | payer MEDICARE, OTHER ==
[2019-12-19 10:10] LABS: BASO % 0.4 % (0.0-1.0); EOS # 0.1 10^3/uL (0.0-0.5); EOS % 1.5 % (0.0-3.0); HEMATOCRIT 44.5 % (36.0-47.0); HEMOGLOBIN 14.2 g/dl (12.0-15.5); LYMPH % 21.1 % (24.0-44.0); MEAN CORPUSCULAR HEMOGLOBIN 27.4 pg (27.0-33.0); MEAN CORPUSCULAR HGB CONC 31.9 g/dl (32.0-36.5); MEAN CORPUSCULAR VOLUME 85.9 fl (80.0-96.0); MONO # 0.8 10^3/uL (0.0-0.8); MONO % 8.8 % (0.0-5.0); NEUTROPHILS # 6.5 10^3/uL (1.5-8.5); NEUTROPHILS % 67.8 % (36.0-66.0); PLATELET COUNT, AUTOMATED 291 10^3/uL (150-450); RED BLOOD COUNT 5.18 10^6/uL (4.00-5.40); WHITE BLOOD COUNT 9.5 10^3/uL (4.0-10.0)
[2019-12-19 10:45] LABS: ALBUMIN 3.9 GM/DL (3.2-5.2); ALT/SGPT 26 U/L (12-78); BILIRUBIN,TOTAL 0.4 MG/DL (0.2-1.0); BLOOD UREA NITROGEN 15 MG/DL (7-18); C REACTIVE PROTEIN QUANTITATIV 1.22 MG/DL (0.00-0.30); CALCIUM LEVEL 9.4 MG/DL (8.8-10.2); CARBON DIOXIDE LEVEL 29 MEQ/L (21-32); CHLORIDE LEVEL 104 MEQ/L (98-107); CREATININE FOR GFR 0.88 MG/DL (0.55-1.30); GLOMERULAR FILTRATION RATE > 60.0 (>45); GLUCOSE, FASTING 78 MG/DL (70-100); POTASSIUM SERUM 4.3 MEQ/L (3.5-5.1); SODIUM LEVEL 140 MEQ/L (136-145); TOTAL PROTEIN 7.3 GM/DL (6.4-8.2)
[2019-12-19 14:36] LABS: ERYTHROCYTE SEDIMENTATION RATE 16 mm/hr (0-30)
== END ==
LOC: M WUC 08:05
PROVIDERS: ATTEND Physician Assistant
DX: R73.09 Other abnormal glucose (principal); M35.3 Polymyalgia rheumatica; E03.9 Hypothyroidism, unspecified

== ENCOUNTER → 2020-01-15 | Outpatient (CLI) | payer MEDICARE, OTHER ==
[~2020-01-15] MED LIST changes: -ASPI81TA85 PO; +ASPI81TA86 PO
[2020-01-15 12:27] LABS: % LABILE ALKALINE PHOSPHATASE 60.6 %
== END ==
LOC: M WUC 08:07
PROVIDERS: ATTEND Internal Medicine Rheumatology
DX: M35.3 Polymyalgia rheumatica (principal)

== ENCOUNTER → 2020-02-23 | Outpatient (CLI) | payer MEDICARE, BC, OTHER ==
[2020-02-23 18:22] LABS: C REACTIVE PROTEIN QUANTITATIV 2.97 MG/DL (0.00-0.30)
== END ==
LOC: M PLALAB 14:27
PROVIDERS: ATTEND Internal Medicine Rheumatology
DX: R76.0 Raised antibody titer (principal); Z20.828 Contact with and (suspected) exposure to other viral communicable diseases
CPT/HCPCS: 36415; 82728; 85652; 86140; G0463; U0003

== ENCOUNTER → 2020-02-23 | Outpatient (REF) | payer MEDICARE, OTHER | LOC: M LAB REF 15:06 | PROVIDERS: ATTEND Internal Medicine Rheumatology | DX: R21 Rash and other nonspecific skin eruption (principal) ==

== ENCOUNTER → 2020-04-11 | Outpatient (CLI) | payer MEDICARE, OTHER ==
[2020-04-11 11:02] LABS: HEMOGLOBIN A1c 5.7 %
[2020-04-11 11:21] LABS: CHOLESTEROL RISK RATIO 5.707 (<5); FREE T4 1.46 NG/DL (0.76-1.46); THYROID STIMULATING HORMONE 1.11 uIU/ML (0.358-3.740)
== END ==
LOC: M WUC 08:08
PROVIDERS: ATTEND Physician Assistant
DX: E03.9 Hypothyroidism, unspecified (principal); R73.09 Other abnormal glucose; E78.5 Hyperlipidemia, unspecified

== ENCOUNTER → 2020-04-11 | Outpatient (CLI) | payer MEDICARE, OTHER ==
[2020-04-11 10:44] LABS: BASO % 0.3 % (0.0-1.0); EOS # 0.2 10^3/uL (0.0-0.5); EOS % 2.8 % (0.0-3.0); HEMATOCRIT 45.1 % (36.0-47.0); HEMOGLOBIN 14.1 g/dl (12.0-15.5); LYMPH # 1.3 10^3/uL (1.5-5.0); LYMPH % 19.1 % (24.0-44.0); MEAN CORPUSCULAR HGB CONC 31.3 g/dl (32.0-36.5); MEAN CORPUSCULAR VOLUME 86.2 fl (80.0-96.0); MONO # 0.5 10^3/uL (0.0-0.8); MONO % 7.2 % (0.0-5.0); NEUTROPHILS # 4.7 10^3/uL (1.5-8.5); PLATELET COUNT, AUTOMATED 296 10^3/uL (150-450); RED BLOOD COUNT 5.23 10^6/uL (4.00-5.40); WHITE BLOOD COUNT 6.8 10^3/uL (4.0-10.0)
[2020-04-11 11:16] LABS: ALBUMIN 3.7 GM/DL (3.2-5.2); ALT/SGPT 28 U/L (12-78); BILIRUBIN,TOTAL 0.4 MG/DL (0.2-1.0); BLOOD UREA NITROGEN 9 MG/DL (7-18); C REACTIVE PROTEIN QUANTITATIV 0.87 MG/DL (0.00-0.30); CALCIUM LEVEL 9.3 MG/DL (8.8-10.2); CARBON DIOXIDE LEVEL 30 MEQ/L (21-32); CHLORIDE LEVEL 105 MEQ/L (98-107); GLOMERULAR FILTRATION RATE > 60.0 (>45); GLUCOSE, FASTING 95 MG/DL (70-100); POTASSIUM SERUM 4.2 MEQ/L (3.5-5.1); SODIUM LEVEL 140 MEQ/L (136-145); TOTAL PROTEIN 6.8 GM/DL (6.4-8.2)
[2020-04-11 11:55] LABS: ERYTHROCYTE SEDIMENTATION RATE 16 mm/hr (0-30)
== END ==
LOC: M WUC 08:12
PROVIDERS: ATTEND Internal Medicine Rheumatology
DX: M35.3 Polymyalgia rheumatica (principal)

== ENCOUNTER → 2020-08-21 | Outpatient (REF) | payer MEDICARE, OTHER ==
[2020-08-21 12:18] LABS: BASO % 0.4 % (0.0-1.0); EOS # 0.2 10^3/uL (0.0-0.5); EOS % 2.3 % (0.0-3.0); HEMATOCRIT 45.2 % (36.0-47.0); HEMOGLOBIN 14.2 g/dl (12.0-15.5); LYMPH # 1.5 10^3/uL (1.5-5.0); LYMPH % 19.6 % (24.0-44.0); MEAN CORPUSCULAR HEMOGLOBIN 27.9 pg (27.0-33.0); MEAN CORPUSCULAR HGB CONC 31.4 g/dl (32.0-36.5); MEAN CORPUSCULAR VOLUME 88.8 fl (80.0-96.0); MONO # 0.5 10^3/uL (0.0-0.8); NEUTROPHILS # 5.2 10^3/uL (1.5-8.5); NEUTROPHILS % 70.4 % (36.0-66.0); PLATELET COUNT, AUTOMATED 275 10^3/uL (150-450); RED BLOOD COUNT 5.09 10^6/uL (4.00-5.40); WHITE BLOOD COUNT 7.4 10^3/uL (4.0-10.0)
[2020-08-21 12:46] LABS: ALBUMIN 3.9 GM/DL (3.2-5.2); BILIRUBIN,TOTAL 0.4 MG/DL (0.2-1.0); C REACTIVE PROTEIN QUANTITATIV 3.51 MG/DL (0.00-0.30); CALCIUM LEVEL 9.8 MG/DL (8.8-10.2); CREATININE FOR GFR 0.98 MG/DL (0.55-1.30); GLOMERULAR FILTRATION RATE 59.7 (>39); POTASSIUM SERUM 4.2 MEQ/L (3.5-5.1); TOTAL PROTEIN 7.3 GM/DL (6.4-8.2)
[2020-08-21 12:54] LABS: ERYTHROCYTE SEDIMENTATION RATE 30 mm/hr (0-30)
== END ==
LOC: M SFHCCLAY 07:57
PROVIDERS: ATTEND Physician Assistant
DX: M35.3 Polymyalgia rheumatica (principal); R79.89 Other specified abnormal findings of blood chemistry

== ENCOUNTER → 2020-08-30 | Outpatient (CLI) | payer MEDICARE, OTHER ==
--- NOTE | 2020-08-30 09:49 | REP ---
INDICATION: PAIN. COMPARISON: None. TECHNIQUE: Four views FINDINGS: There is dorsal dislocation of the distal phalanx of the DIP joint at the 3rd digit. I do not see an avulsion fragment. There is no fracture line. The PIP joint, MCP joint, phalanges, metacarpal and adjacent bones/joints all without fracture or focal lesion. IMPRESSION: 1. Dorsal dislocation distal phalanx at the DIP joint of the 3rd digit without visible fracture. No other finding. <Electronically signed by Malachi Smith > 08/30/20 0949
--- NOTE | 2020-08-30 14:04 | REP ---
INDICATION: POST REDUCTION. 10:31 a.m. radiographs. COMPARISON: Comparison radiographs are from earlier on this date at 9:36 a.m... TECHNIQUE: AP and lateral views time stamp 10:31 a.m.. FINDINGS: AP and lateral views of the left long finger demonstrate normal alignment of the DIP joint. No fracture is seen.. No opaque foreign body seen.. . IMPRESSION: The DIP joint of the long finger is reduced. No fracture is evident.. <Electronically signed by Iggy Joyner > 08/30/20 1400
== END ==
LOC: M WUC 09:18
PROVIDERS: ATTEND Physician Assistant
DX: M79.645 Pain in left finger(s) (principal); S63.293A Dislocation of distal interphalangeal joint of left middle finger, initial encounter; X58.XXXA Exposure to other specified factors, initial encounter; Y92.9 Unspecified place or not applicable

== ENCOUNTER 2020-10-02 07:00 | Observation (INO) | payer MEDICARE, BC, OTHER ==
[~2020-10-02] VITALS: Ht 157.5 cm; Wt 74.0 kg
[2020-10-02] MEDS ORDERED: PEPC1TAB5 PO (07:11)
[2020-10-02] MEDS ORDERED: IBAN150T6 (07:11)
[2020-10-02] MEDS ORDERED: SYNT88TA2 PO (07:11)
[2020-10-02] MEDS ORDERED: NS 1,000 ML IV SCH (08:03)
[2020-10-02] MEDS ORDERED: ONDANSETRON 4MG/2ML VIAL IV ONE (08:05)
[2020-10-02] MEDS ORDERED: MORPHINE 2 MG/ML 1ML VIAL (J2270) IV ONE (08:05)
[2020-10-02 09:02] LABS: BASO % 0.4 % (0.0-1.0); EOS # 0.1 10^3/uL (0.0-0.5); EOS % 1.7 % (0.0-3.0); HEMATOCRIT 40.4 % (36.0-47.0); HEMOGLOBIN 12.6 g/dl (12.0-15.5); LYMPH # 1.1 10^3/uL (1.5-5.0); LYMPH % 13.9 % (24.0-44.0); MEAN CORPUSCULAR HGB CONC 31.2 g/dl (32.0-36.5); MEAN CORPUSCULAR VOLUME 86.7 fl (80.0-96.0); MONO # 0.7 10^3/uL (0.0-0.8); MONO % 8.2 % (2.0-8.0); NEUTROPHILS # 6.1 10^3/uL (1.5-8.5); NEUTROPHILS % 75.3 % (36.0-66.0); PLATELET COUNT, AUTOMATED 311 10^3/uL (150-450); RED BLOOD COUNT 4.66 10^6/uL (4.00-5.40); WHITE BLOOD COUNT 8.1 10^3/uL (4.0-10.0)
[2020-10-02] MEDS ORDERED: ISOVUE-370 76% 100ML VIAL As Ordered ONE (09:12)
[2020-10-02 09:26] LABS: ALBUMIN 3.4 GM/DL (3.2-5.2); BILIRUBIN,DIRECT 0.1 MG/DL (0.0-0.2); BILIRUBIN,TOTAL 0.3 MG/DL (0.2-1.0); TOTAL PROTEIN 6.7 GM/DL (6.4-8.2)
--- NOTE | 2020-10-02 10:13 | REP ---
INDICATION: LLQ pain, Hx diverticulosis. COMPARISON: CT 10/16/2012 TECHNIQUE: Bolus 100 mL Isovue 370 scanning through the abdomen and pelvis with coronal and sagittal reconstructions provided. FINDINGS: CT abdomen: Lung bases with some minor dependent atelectatic change posteriorly lower lung zones without effusion or acute infiltrate. No parenchymal mass or nodules. The heart is not enlarged. There is no pericardial thickening, effusion, hiatal hernia or stomach abnormality. Liver shows a few scattered subcentimeter hypodensities most consistent with small cysts. There is no hepatic mass, biliary dilatation or adjacent ascites. Gallbladder surgically absent. There is no splenomegaly or focal splenic lesion. I see no ascites in the upper abdomen on either side. The adrenal glands are normal. Pancreas shows no mass, ductal dilatation, calcification or peripancreatic fluid/adenopathy. Kidneys show some lobation without mass, cyst or perinephric edema. No abnormal calcification. Extrarenal pelvis on both sides. Ureters show normal course to the bladder without dilatation or stone. Small bowel loops are without dilatation or perienteric inflammatory changes. The aorta is without aneurysm or dissection. No periaortic, mesenteric or other retroperitoneal pathologic lymphadenopathy. The abdominal portions of the colon shows stool and gas scattered without signs of colitis or diverticulitis. No generalized ascites. The bone windows show lumbar and lower thoracic spine with small marginal osteophytes. Posterior elements grossly intact. No compression deformity or destructive lesion visualized. Lower ribs are intact. CT pelvis: The sacrum, SI joints, iliac bones, acetabulae, hips and ischia are without acute finding. Minor degenerative changes present. The distal left colon and proximal sigmoid show extensive diverticulosis and there is a zone of diverticulitis extending from the distal left colon through the proximal sigmoid for a length of about 15 cm. Inflammatory changes in the fat adjacent to this loop of bowel without perforation or abscess. All of the air bubbles are contained in diverticula. Lung window review of all CT slices in the abdomen and pelvis shows no perforation or free air. Mid to distal sigmoid and rectum are unremarkable. Appendix is seen and normal. No pericecal inflammatory changes noted the distal small bowel loops were unremarkable. No ventral or inguinal hernia nor pathologic sized inguinal adenopathy present. Uterus not enlarged. There is no pelvic mass or free fluid. Bladder is only partially filled. No bladder stone. IMPRESSION: 1. Approximately 15 cm length with significant diverticulitis of the distal left colon and proximal sigmoid extending towards the midline. I see no micro perforation or abscess. However inflammatory changes are significant. No free fluid in the pelvis. 2. Appendix seen and normal. Small bowel loops and the colon from cecum to mid left colon were normal. 3. Few tiny hepatic cysts without focal lesion in the gallbladder surgically absent. The rib upper abdominal organs are normal. No perforation, free air or ascites and the abdomen or pelvis. <Electronically signed by Malachi Smith > 10/02/20 [id number]
[2020-10-02] MEDS ORDERED: metroNIDAZOLE 500 MG in IV 1 EA IV ONE (11:15)
[2020-10-02] MEDS ORDERED: CIPROFLOXACIN 400 MG in IV 1 EA IV ONE (11:15)
--- NOTE | 2020-10-02 12:30 | REP ---
INDICATION: admission. COMPARISON: 08/28/2019, 10/14/2016 TECHNIQUE: AP portable upright chest FINDINGS: Lung ruiz remain well inflated without infiltrate, pleural effusion, atelectasis or mass. CP angles are sharply defined. No parenchymal nodule seen. There is apical pleural thickening bilaterally in a symmetric fashion, unchanged. Heart is not enlarged. The aorta is mildly tortuous but without aneurysm. Aorta and airway intact although some aortic tortuosity seen, stable. No widening of the mediastinum. Janice symmetric and normal. No free air under the diaphragm. Some degenerative changes in the spine and shoulders noted but mild. IMPRESSION: No acute cardiopulmonary disease, stable chest. <Electronically signed by Malachi Smith > 10/02/20 [id number]
[2020-10-02] MEDS ORDERED: ACETAMINOPHEN TAB 650MG DOSE (2X325MG) PO PRN (12:35)
--- NOTE | 2020-10-02 12:43 | HPEPDOC ---
General Date of Admission 10/02/20 Date of Service: Oct 02, 2020 Chief Complaint The patient is a 70-year-old female admitted with a reason for visit of Abdominal Pain. Source: Patient Exam Limitations: No limitations History of Present Illness Patient is 70 years old male with past history of hypothyroidism, hyperlipidemia, TIA, polymyalgia rheumatica presented hospital with left lower quadrant pain. Patient stated that she has been having intermittent left lower quadrant pain for past 3-4 weeks. She stated that the pain exacerbated by bowel movements and became 8 out of 10. Patient stated that she has a chronic constipation, she is able to have bowel movements every 3-4 days. Patient denied any fever or chills, she never noticed any red blood in her stool or black stool. She stated 2 years ago she had colonoscopy and EGD, she was found to have hiatal hernia and diverticulitis. In ER patient was found to have no leukocytosis, hemoglobin 12.6. CT abdomen and pelvis showed 15 cm length with significant diverticulitis of the distal left colon and proximal sigmoid extending towards the midline. EKG did not show any acute ischemic changes Home Medications Scheduled (Saline Nasal [place]) 0.65 % Spr, 1 SPRAY NA DAILY, (Reported) Aspirin (Aspirin EC) 81 Mg Tab, 81 MG PO DAILY, (Reported) Famotidine (Pepcid) 20 Mg Tablet, 20 MG PO DAILY, (Reported) Levothyroxine Sodium (Levothyroxine Sodium) 100 Mcg Tab, 100 MCG PO Q2D, (Reported) Levothyroxine Sodium (Synthroid) 88 Mcg Tablet, 1 TAB PO Q2D, (Reported) Scheduled PRN Lactobacillus Acidophilus (Probiotic) 1 Cap Cap, 1 CAP PO DAILY PRN for CONSTIPATION, (Reported) Miscellaneous Medications Ibandronate Sodium (Ibandronate Sodium) 150 Mg Tablet, (Reported) Allergies Coded Allergies: Penicillins (Verified Allergy, Intermediate, RASH, 08/28/19) Sulfa (Sulfonamide Antibiotics) (Verified Allergy, Unknown, HIVES, 08/28/19) ezetimibe (Verified Allergy, Unknown, 08/28/19) gemfibrozil (Verified Adverse Reaction, Intermediate, JOINT PAIN, DIFFICULTY URINATING, 08/28/19) nitrofurantoin (Verified Adverse Reaction, Intermediate, HIVES, 08/28/19) prednisone (Verified Adverse Reaction, Unknown, "heart racing", 10/02/20) Past Medical History Medical History HYPOTHYROIDISM HYPERLIPIDEMIA TIA HISTORY OF LEFT MIDDLE CEREBRAL ARTERY ANEURYSM AND LEFT PERICOLOSTOMY ARTERY ANEURYSM FOR WHICH SHE DECLINED SURGICAL INTERVENTION BY NEUROSURGERY DESPITE RECOMMENDATION. MOST RECENT IMAGING MRA FROM 2017 VERTIGO POLYMYALGIA RHEUMATICA Surgical History TONSILLECTOMY COLONOSCOPY ANGIOGRAM-[place] IN [place] R LEG 11/2012 BREAST LUMP BIOPSY - BENIGN FOLLOW UP IN 6 MONTHS - [place] 03/12/2020 Family History FATHER: UNKNOWN, NO KNOWN MEDICAL PROBLEMS MOTHER: ALIVE 80 YRS, HIGH BLOOD PRESSURE, HIGH CHOLESTEROL SIBLINGS: NO KNOWN MEDICAL PROBLEMS 5 BROTHER(S) , 3 SISTER(S) . 2 SON(S) . 1 DAUGHTER WAS STILLBORNSTRONG FAMILY HX OF RHEUMATOID ARTHRITIS. Social History * Smoker: Denies Alcohol: Denies Drugs: denies A-FIB/CHADSVASC A-FIB History Current/History of A-Fib/PAF?: No Current PO Anticoag Therapy: No Review of Systems Constitutional: Denies: Chills, Fever Eyes: Denies: Pain ENT: Denies: Head Aches Skin: Denies: Rash, Lesions Pulmonary: Denies: Dyspnea Cardiovascular: Denies: Chest Pain Gastrointestinal: Reports: Abdominal Pain, Constipation Genitourinary: Denies: Dysuria Hematologic: Denies: Bruising Endocrine: Denies: Polydipsia Musculoskeletal: Denies: Neck Pain Neurological: Denies: Weakness Psych: Reports: Mood Normal Physical Examination General Exam: Positive: Alert, Cooperative Eye Exam: Positive: PERRLA ENT Exam: Positive: Atraumatic Neck Exam: Positive: Supple; Negative: JVD Chest Exam: Positive: Clear to auscultation Heart Exam: Positive: Rate Normal Abdomen Exam: Positive: BS Hyperactive, Soft, Tenderness (LLQ tenderness) Extremity Exam: Negative: Clubbing, Cyanosis Skin Exam: Positive: Nl turgor and temperature Neuro Exam: Positive: Normal Gait Psych Exam: Positive: Mental status NL Vital Signs Vital Signs Date Time Temp Pulse Resp B/P (MAP) Pulse Ox O2 Delivery O2 Flow Rate FiO2 10/02/20 12:00 77 16 131/57 (81) 96 Room Air 10/02/20 10:15 97.7 Laboratory Data Labs 24H Laboratory Tests 2 10/02/20 08:08: Immature Granulocyte % (Auto) 0.5, Neutrophils (%) (Auto) 75.3H, Lymphocytes (%) (Auto) 13.9L, Monocytes (%) (Auto) 8.2H, Eosinophils (%) (Auto) 1.7, Basophils (%) (Auto) 0.4, Neutrophils # (Auto) 6.1, Lymphocytes # (Auto) 1.1L, Monocytes # (Auto) 0.7, Eosinophils # (Auto) 0.1, Basophils # (Auto) 0.0, Nucleated Red Blood Cells % (auto) 0.0, Total Bilirubin 0.3, Direct Bilirubin 0.1, Aspartate Amino Transf (AST/SGOT) 13, Alanine Aminotransferase (ALT/SGPT) 25, Alkaline Phosphatase 129H, Total Protein 6.7, Albumin 3.4, Albumin/Globulin Ratio 1.0L, L ipase 138 10/02/20 08:40: POC Glucose (Misc Panel) 106H, POC Sodium (Misc Panel) 133L, POC Potassium (Misc Panel) 6.2*H, POC Chloride (Misc Panel) 105, POC Total CO2 (Misc Panel) 27.0, POC Blood Urea Nitrogen (Misc Panel 10, POC Ionized Calcium (Misc Panel) 3.9L, POC Creatinine (Misc Panel) 0.7, POC Hematocrit (Misc Panel) 39.0 10/02/20 08:52: POC Glucose (Misc Panel) 106H, POC Sodium (Misc Panel) 138, POC Potassium (Misc Panel) 3.9, POC Chloride (Misc Panel) 103, POC Total CO2 (Misc Panel) 27.0, POC Blood Urea Nitrogen (Misc Panel 7L, POC Ionized Calcium (Misc Panel) 4.8, POC Creatinine (Misc Panel) 0.7, POC Hematocrit (Misc Panel) 40.0 CBC/BMP Laboratory Tests 10/02/20 08:08 Microbiology Microbiology 10/02/20 Respiratory Virus Panel (PCR) (DANNI), Received Pending Assessment/Plan Patient is 70 years old male with past history of hypothyroidism, hyperlipidemia, TIA, polymyalgia rheumatica presented hospital with left lower quadrant pain. Patient stated that she has been having intermittent left lower quadrant pain for past 3-4 weeks. She stated that the pain exacerbated by bowel movements and became 8 out of 10. Patient stated that she has a chronic constipation, she is able to have bowel movements every 3-4 days. Patient denied any fever or chills, she never noticed any red blood in her stool or black stool. She stated 2 years ago she had colonoscopy and EGD, she was found to have hiatal hernia and diverticulitis. In ER patient was found to have no leukocy tosis, hemoglobin 12.6. CT abdomen and pelvis showed 15 cm length with significant diverticulitis of the distal left colon and proximal sigmoid extending towards the midline. EKG did not show any acute ischemic changes Problems (1) Diverticulitis Status: Acute Problem Text: CT abdomen and pelvis showed 15 cm length with significant diverticulitis of the distal left colon and proximal sigmoid extending towards the midline Pain management Ciprofloxacin IV, Flagyl IV Clear liquid diets for now (2) Hypothyroidism Status: Chronic Problem Text: Continue levothyroxine (3) History of TIAs Status: Chronic Problem Text: Continue aspirin (4) Rheumatoid arthritis Status: Chronic Problem Text: Follow-up with director of corporate real estate in the outpatient settings (5) Constipation Status: Chronic Problem Text: Dulcolax daily Plan / VTE VTE Prophylaxis Ordered?: Yes AMBER MCCALLUM DO Oct 02, 2020 12:42
[2020-10-02] MEDS ORDERED: DOCUSATE SODIUM 100MG CAPSULE PO ONE (13:00)
[2020-10-02] MEDS ORDERED: PRIL20TA2 PO (13:09)
[2020-10-02] MEDS ORDERED: PROBCAP14 PO (13:09)
[2020-10-02] MEDS ORDERED: TUMS500C PO (13:09)
[2020-10-02] MEDS: NS 1,000 ML IV SCH ×2 (13:52→18:41)
[2020-10-02] MEDS: BISACODYL 5 MG TAB PO SCH (13:55)
[2020-10-02 15:00] VITALS: BP 125/72
--- NOTE | 2020-10-02 20:39 | ECGEPIP ---
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
[2020-10-02] MEDS: PANTOPRAZOLE 40MG TAB (PROTONIX) PO SCH (21:48)
[2020-10-02] MEDS: metroNIDAZOLE 500 MG in IV 1 EA IV SCH (21:48)
[2020-10-02 22:00] VITALS: BP 124/69
[2020-10-03] MEDS: CIPROFLOXACIN 400 MG in IV 1 EA IV SCH ×2 (00:01→11:14)
[2020-10-03] MEDS: NS 1,000 ML IV SCH (04:58)
[2020-10-03] MEDS: metroNIDAZOLE 500 MG in IV 1 EA IV SCH ×2 (05:48→12:18)
[2020-10-03 06:00] VITALS: BP 125/70
[2020-10-03] MEDS ORDERED: LEVOTHYROXINE 100MCG TABLET (0.1MG) PO SCH (06:00)
[2020-10-03 06:48] LABS: HEMOGLOBIN 12.2 g/dl (12.0-15.5); MEAN CORPUSCULAR HEMOGLOBIN 27.1 pg (27.0-33.0); MEAN CORPUSCULAR HGB CONC 30.5 g/dl (32.0-36.5); MEAN CORPUSCULAR VOLUME 88.7 fl (80.0-96.0); PLATELET COUNT, AUTOMATED 290 10^3/uL (150-450); RED BLOOD COUNT 4.51 10^6/uL (4.00-5.40); WHITE BLOOD COUNT 6.6 10^3/uL (4.0-10.0)
[2020-10-03 07:17] LABS: ALBUMIN 2.9 GM/DL (3.2-5.2); ALT/SGPT 24 U/L (12-78); BILIRUBIN,TOTAL 0.3 MG/DL (0.2-1.0); BLOOD UREA NITROGEN 6 MG/DL (7-18); CALCIUM LEVEL 8.3 MG/DL (8.8-10.2); CARBON DIOXIDE LEVEL 28 MEQ/L (21-32); CHLORIDE LEVEL 112 MEQ/L (98-107); CREATININE FOR GFR 0.65 MG/DL (0.55-1.30); GLOMERULAR FILTRATION RATE > 60.0 (>39); GLUCOSE, FASTING 93 MG/DL (70-100); MAGNESIUM LEVEL 2.3 MG/DL (1.8-2.4); POTASSIUM SERUM 4.1 MEQ/L (3.5-5.1); SODIUM LEVEL 143 MEQ/L (136-145); TOTAL PROTEIN 5.7 GM/DL (6.4-8.2)
[2020-10-03] MEDS: PANTOPRAZOLE 40MG TAB (PROTONIX) PO SCH (08:57)
[2020-10-03] MEDS: BISACODYL 5 MG TAB PO SCH (08:57)
[2020-10-03] MEDS ORDERED: OMEPRAZOLE 20 MG CAP PO SCH (09:00)
[2020-10-03] MEDS ORDERED: ENOXAPARIN 40MG/0.4ML SYRINGE (J1650 PER 10MG) SC SCH (09:00)
[2020-10-03] MEDS ORDERED: CIPR750T2 PO (12:12)
[2020-10-03] MEDS ORDERED: BISAC5TA PO (12:12)
[2020-10-03] MEDS ORDERED: FLAG500T PO (12:12)
[2020-10-03 14:00] VITALS: BP 118/61
--- NOTE | 2020-10-03 18:16 | DS.PDOC ---
Discharge Summary General Date of Admission Oct 02, 2020 at 07:01 Date of Discharge 10/03/20 Discharge Summary PROCEDURES PERFORMED DURING STAY: [None]. ADMITTING DIAGNOSES: Diverticulitis Hypothyroidism History of TIAs Rheumatoid arthritis Constipation DISCHARGE DIAGNOSES: Diverticulitis Hypothyroidism History of TIAs Rheumatoid arthritis Constipation COMPLICATIONS/CHIEF COMPLAINT: Diverticulitis. HISTORY OF PRESENT ILLNESS Patient is 70 years old male with past history of hypothyroidism, hyperlipidemia, TIA, polymyalgia rheumatica presented hospital with left lower quadrant pain. Patient stated that she has been having intermittent left lower quadrant pain for past 3-4 weeks. She stated that the pain exacerbated by bowel movements and became 8 out of 10. Patient stated that she has a chronic constipation, she is able to have bowel movements every 3-4 days. Patient denied any fever or chills, she never noticed any red blood in her stool or black stool. She stated 2 years ago she had colonoscopy and EGD, she was found to have hiatal hernia and diverticulitis. In ER patient was found to have no leukocytosis, hemoglobin 12.6. CT abdomen and pelvis showed 15 cm length with significant diverticulitis of the distal left colon and proximal sigmoid extending towards the midline. EKG did not show any acute ischemic changes HOSPITAL COURSE: During the hospital stay the following issues addressed (1) Diverticulitis CT abdomen and pelvis showed 15 cm length with significant diverticulitis of the distal left colon and proximal sigmoid extending towards the midline Pain management Patient received Ciprofloxacin IV, Flagyl IV Patient tolerates soft mechanical diet today (2) Hypothyroidism Continue levothyroxine (3) History of TIAs Continue aspirin (4) Rheumatoid arthritis Follow-up with media production manager in the outpatient settings (5) Constipation Dulcolax daily DISCHARGE MEDICATIONS: Please see below. ALLERGIES: Please see below. PHYSICAL EXAMINATION ON DISCHARGE: VITAL SIGNS: Please see below. GENERAL APPEARANCE: NAD HEENT: no scleral icterus, no JVD, EOMI CARDIOVASCULAR: S1S2 LUNGS: CTA ABDOMEN: soft & not tender w palpitation MUSCULOSKELETAL: no cyanosis, no swelling INTEGUMENT: no generalized pallor NEUROLOGICAL: cranial nerve function from 2-12 intact intact, follows commands, speech not dysarthric LABORATORY DATA: Please see below. PROGNOSIS: Fair ACTIVITY: [As tolerated]. DIET: Soft mechanical diet for next 3-4 days DISCHARGE PLAN: Follow-up with PCP DISPOSITION: Home, Self-Care. DISCHARGE CONDITION: [Stable]. TIME SPENT ON DISCHARGE:40 minutes. Vital Signs/I&Os Vital Signs Date Time Temp Pulse Resp B/P (MAP) Pulse Ox O2 Delivery O2 Flow Rate FiO2 10/03/20 14:00 98.1 89 18 118/61 (80) 95 Room Air I&O- Last 24 Hours up to 6 AM 10/03/20 06:00 Intake Total 1510 ml Output Total 1400 ml Balance 110 ml Laboratory Data Labs 24H Laboratory Tests 2 10/03/20 06:08: Nucleated Red Blood Cells % (auto) 0.0, Anion Gap 3L, Glomerular Filtration Rate > 60.0, Calcium Level 8.3L, Magnesium Level 2.3, Total Bilirubin 0.3, Aspartate Amino Transf (AST/SGOT) 14, Alanine Aminotransferase (ALT/SGPT) 24, Alkaline Phosphatase 106, Total Protein 5.7L, Albumin 2.9L, Albumin/Globulin Ratio 1.0L 10/03/20 10:47: Lab Scanned Report Miscellaneous Lab CBC/BMP Laboratory Tests 10/03/20 06:08 Microbiology Microbiology 10/02/20 Respiratory Virus Panel (PCR) (DANNI) - Final, Complete Discharge Medications Scheduled Bisacodyl (Bisacodyl) 5 Mg Tablet.dr, 10 MG PO DAILY Ciprofloxacin HCl (Ciprofloxacin HCl) 750 Mg Tablet, 1 TAB PO BID Lactobacillus Acidophilus (Probiotic) 1 Each Capsule, 1 CAP PO DAILY, (Reported) Levothyroxine Sodium (Levothyroxine Sodium) 100 Mcg Tab, 100 MCG PO Q2D, (Repor jessy) Levothyroxine Sodium (Synthroid) 88 Mcg Tablet, 88 MCG PO Q2D, (Reported) Metronidazole (Flagyl) 500 Mg Tablet, 500 MG PO Q8H FOR 10 DAYS Omeprazole Magnesium (Prilosec Otc) 20 Mg Tablet.dr, 20 MG PO DAILY, (Reported) Scheduled PRN Calcium Carbonate (Tums) 200 Mg Tab.chew, 500 MG PO QID PRN for HEARTBURN, (Reported) Allergies Coded Allergies: Penicillins (Verified Allergy, Intermediate, RASH, 08/28/19) Sulfa (Sulfonamide Antibiotics) (Verified Allergy, Intermediate, HIVES, 10/02/20) gemfibrozil (Verified Adverse Reaction, Intermediate, JOINT PAIN, DIFFICULTY URINATING, 08/28/19) nitrofurantoin (Verified Adverse Reaction, Intermediate, HIVES, 08/28/19) ezetimibe (Verified Adverse Reaction, Unknown, BLOATING, 10/02/20) ibandronate sodium (Verified Adverse Reaction, Unknown, JOINT PAIN, 10/02/20) prednisone (Verified Adverse Reaction, Unknown, "heart racing", 10/02/20) AMBER MCCALLUM DO Oct 03, 2020 18:16
[2020-10-04] MEDS ORDERED: LEVOTHYROXINE 88MCG TABLET (0.088 MG) PO SCH (06:00)
== END 2020-10-03 14:51 | disposition home or self-care (01) ==
LOC: M ED 07:00 → M ED INP 07:01 → ENRESERV 13:31 → M MS5PR 14:45
PROVIDERS: ADMIT Internal Medicine; ATTEND Internal Medicine
DX: K57.92 Diverticulitis of intestine, part unspecified, without perforation or abscess without bleeding (principal); E03.9 Hypothyroidism, unspecified; Z86.73 Personal history of transient ischemic attack (TIA), and cerebral infarction without residual deficits; M06.9 Rheumatoid arthritis, unspecified; K59.00 Constipation, unspecified; E78.49 Other hyperlipidemia; M35.3 Polymyalgia rheumatica; K44.9 Diaphragmatic hernia without obstruction or gangrene; Z79.899 Other long term (current) drug therapy; Z88.0 Allergy status to penicillin; Z88.8 Allergy status to other drugs, medicaments and biological substances
CPT/HCPCS: 36415; 71045; 74177; 80047; 80053; 80076; 83690; 83735; 85025; 85027; 87798; 93005; 93041; 96361; 96365; 96366; 96367; 96375; 99285; G0378; J0744; J1650; J2270; J2405; Q9967

== ENCOUNTER 2020-10-16 20:13 | Emergency (ER) | payer MEDICARE, OTHER ==
[~2020-10-16] VITALS: Ht 157.5 cm; Wt 72.7 kg
[2020-10-16 20:57] LABS: BASO % 0.2 % (0.0-1.0); EOS # 0.3 10^3/uL (0.0-0.5); EOS % 2.1 % (0.0-3.0); HEMATOCRIT 40.4 % (36.0-47.0); HEMOGLOBIN 12.9 g/dl (12.0-15.5); LYMPH % 7.8 % (24.0-44.0); MEAN CORPUSCULAR HEMOGLOBIN 27.2 pg (27.0-33.0); MEAN CORPUSCULAR HGB CONC 31.9 g/dl (32.0-36.5); MEAN CORPUSCULAR VOLUME 85.2 fl (80.0-96.0); MONO % 7.9 % (2.0-8.0); NEUTROPHILS % 81.5 % (36.0-66.0); PLATELET COUNT, AUTOMATED 203 10^3/uL (150-450); RED BLOOD COUNT 4.74 10^6/uL (4.00-5.40); WHITE BLOOD COUNT 12.2 10^3/uL (4.0-10.0)
[2020-10-16 21:01] LABS: INR 1.05; PROTHROMBIN TIME 13.9 SECONDS (12.5-14.3)
[2020-10-16 21:02] LABS: PARTIAL THROMBOPLASTIN TIME 30.9 SECONDS (24.2-38.5)
[2020-10-16 21:16] LABS: ALBUMIN 3.4 GM/DL (3.2-5.2); ALT/SGPT 31 U/L (12-78); BILIRUBIN,DIRECT 0.1 MG/DL (0.0-0.2); BILIRUBIN,TOTAL 0.7 MG/DL (0.2-1.0); BLOOD UREA NITROGEN 11 MG/DL (7-18); CALCIUM LEVEL 9.4 MG/DL (8.8-10.2); CARBON DIOXIDE LEVEL 26 MEQ/L (21-32); CHLORIDE LEVEL 101 MEQ/L (98-107); CK-MB VALUE MASS < 1.0 NG/ML (<3.6); CPK CREATINE PHOSPHOKINASE 101 U/L (26-192); CREATININE FOR GFR 1.11 MG/DL (0.55-1.30); FREE T4 1.77 NG/DL (0.76-1.46); GLOMERULAR FILTRATION RATE 51.7 (>39); GLUCOSE, FASTING 132 MG/DL (70-100); LIPASE 100 U/L (73-393); MB/CK RELATIVE INDEX 0.99 (< OR =4); POTASSIUM SERUM 3.5 MEQ/L (3.5-5.1); SODIUM LEVEL 135 MEQ/L (136-145); TOTAL PROTEIN 6.9 GM/DL (6.4-8.2); TROPONIN I < 0.02 NG/ML (< 0.10)
[2020-10-16] MEDS ORDERED: ISOVUE-370 76% 100ML VIAL As Ordered ONE (22:17)
[2020-10-16 22:51] VITALS: O2SAT 95
[2020-10-16 23:15] VITALS: BP 140/65
--- NOTE | 2020-10-16 23:23 | REPVR ---
PROCEDURE INFORMATION: Exam: CTA Chest With Contrast Exam date and time: 10/16/2020 10:37 PM Age: 70 years old Clinical indication: Shortness of breath; Additional info: SOB, fever TECHNIQUE: Imaging protocol: Computed tomographic angiography of the chest with contrast. 3D rendering (Not supervised by radiologist): MIP and/or 3D reconstructed images were created by the technologist. Radiation optimization: All CT scans at this facility use at least one of these dose optimization techniques: automated exposure control; mA and/or kV adjustment per patient size (includes targeted exams where dose is matched to clinical indication); or iterative reconstruction. Contrast material: ISOVUE 370; Contrast volume: 75 ml; Contrast route: INTRAVENOUS (IV); COMPARISON: LA CHEST 2 VIEW 10/16/2020 1:43 PM FINDINGS: Pulmonary arteries: Peripheral pulmonary artery evaluation limited by cardiac and respiratory motion artifact. Central pulmonary arteries show no intraluminal defect suggestive of clot. Aorta: Thoracic aorta is ectatic and atherosclerotic. No focal aneurysm or dissection. Lungs: Pulmonary vascular/interstitial pattern does not suggest active pulmonary edema. Atelectasis is present at the lung bases. No evidence of pneumonia or lung mass. Pleural spaces: No pleural effusion or pneumothorax. Heart: No overt cardiac enlargement or abnormal volume of pericardial fluid. Lymph nodes: Small mediastinal and hilar lymph nodes are present. Gallbladder and bile ducts: Gallbladder is surgically absent. Bones/joints: Bony structures show no acute fracture or destructive process. Soft tissues: Unremarkable. IMPRESSION: 1. No evidence of acute, central pulmonary embolus. Peripheral pulmonary arterial evaluation is limited by cardiac and respiratory motion artifact. 2. Atelectatic changes at the lung bases with linear and discoid morphology. No evidence of pneumonia. 3. Nonspecific small mediastinal and hilar lymph nodes. Electronically signed by: Rasheed Ortiz On 10/16/2020 23:24:00 PM
--- NOTE | 2020-10-17 10:16 | ECGEPIP ---
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
== END 2020-10-16 23:51 | disposition home or self-care (01) ==
LOC: M ED 20:13
DX: R05 Cough (principal); E03.9 Hypothyroidism, unspecified; E78.5 Hyperlipidemia, unspecified; Z88.0 Allergy status to penicillin; Z88.8 Allergy status to other drugs, medicaments and biological substances; Z88.6 Allergy status to analgesic agent; Z88.1 Allergy status to other antibiotic agents; Z88.2 Allergy status to sulfonamides; Z79.899 Other long term (current) drug therapy
CPT/HCPCS: 36415; 71046; 71275; 80053; 82550; 82553; 83690; 84145; 84439; 84443; 84484; 85025; 85610; 85730; 86140; 87040; 87426; 87798; 87804; 93005; 93041; 94760; 99285; G0463; Q9967

== ENCOUNTER → 2020-10-16 | Outpatient (REF) | payer MEDICARE, OTHER ==
[~2020-10-16] MED LIST changes: +BISAC5TA PO; +CIPR750T2 PO; +FLAG500T PO; +IBAN150T6; +PEPC1TAB5 PO; +PRIL20TA2 PO; +PROBCAP14 PO; +TUMS500C PO
== END ==
LOC: M SFHCCAPE 12:14
PROVIDERS: ATTEND Physician Assistant
DX: R05 Cough (principal)

== ENCOUNTER → 2020-10-16 | Outpatient (CLI) | payer MEDICARE, OTHER ==
--- NOTE | 2020-10-16 14:36 | REP ---
INDICATION: COUGH. COMPARISON: 10/02/2020 a portable exam TECHNIQUE: PA and lateral FINDINGS: There are a few bibasilar curvilinear densities. The pleural angles are again seen to be sharp. The heart is not enlarged. The osseous structures are stable and intact IMPRESSION: Bibasilar curvilinear densities likely combination of chronic fibrotic changes and subsegmental atelectatic changes. Consider follow-up. <Electronically signed by Mehdi Mejia > 10/16/20 [id number]
[2020-10-16 17:14] LABS: BASO # 0.1 10^3/uL (0.0-0.2); BASO % 0.3 % (0.0-1.0); EOS # 0.1 10^3/uL (0.0-0.5); EOS % 0.6 % (0.0-3.0); HEMATOCRIT 38.8 % (36.0-47.0); HEMOGLOBIN 12.2 g/dl (12.0-15.5); LYMPH # 0.9 10^3/uL (1.5-5.0); LYMPH % 5.7 % (24.0-44.0); MEAN CORPUSCULAR HEMOGLOBIN 27.6 pg (27.0-33.0); MEAN CORPUSCULAR HGB CONC 31.4 g/dl (32.0-36.5); MEAN CORPUSCULAR VOLUME 87.8 fl (80.0-96.0); MONO # 0.9 10^3/uL (0.0-0.8); MONO % 5.9 % (2.0-8.0); NEUTROPHILS # 12.9 10^3/uL (1.5-8.5); NEUTROPHILS % 86.9 % (36.0-66.0); RED BLOOD COUNT 4.42 10^6/uL (4.00-5.40); WHITE BLOOD COUNT 14.9 10^3/uL (4.0-10.0)
[2020-10-16 17:42] LABS: PLATELET COUNT, AUTOMATED 203 10^3/uL (150-450)
[2020-10-16 18:59] LABS: ALBUMIN 3.5 GM/DL (3.2-5.2); BILIRUBIN,TOTAL 0.8 MG/DL (0.2-1.0); CALCIUM LEVEL 9.3 MG/DL (8.8-10.2); CREATININE FOR GFR 1.06 MG/DL (0.55-1.30); GLOMERULAR FILTRATION RATE 54.6 (>39); POTASSIUM SERUM 3.6 MEQ/L (3.5-5.1); TOTAL PROTEIN 6.7 GM/DL (6.4-8.2)
[2020-10-16 19:19] LABS: C REACTIVE PROTEIN QUANTITATIV 16.4 MG/DL (0.00-0.30)
== END ==
LOC: M WUC 13:23
PROVIDERS: ATTEND Physician Assistant
DX: R91.8 Other nonspecific abnormal finding of lung field (principal); M35.3 Polymyalgia rheumatica; R05 Cough

== ENCOUNTER → 2020-10-17 | Outpatient (REF) | payer MEDICARE, OTHER ==
[2020-10-17 16:31] LABS: BASO % 0.3 % (0.0-1.0); EOS # 0.2 10^3/uL (0.0-0.5); HEMATOCRIT 39.7 % (36.0-47.0); HEMOGLOBIN 12.6 g/dl (12.0-15.5); LYMPH % 8.3 % (24.0-44.0); MEAN CORPUSCULAR HEMOGLOBIN 27.2 pg (27.0-33.0); MEAN CORPUSCULAR HGB CONC 31.7 g/dl (32.0-36.5); MEAN CORPUSCULAR VOLUME 85.7 fl (80.0-96.0); MONO # 0.9 10^3/uL (0.0-0.8); MONO % 7.5 % (2.0-8.0); NEUTROPHILS # 9.4 10^3/uL (1.5-8.5); NEUTROPHILS % 81.3 % (36.0-66.0); PLATELET COUNT, AUTOMATED 222 10^3/uL (150-450); RED BLOOD COUNT 4.63 10^6/uL (4.00-5.40); WHITE BLOOD COUNT 11.6 10^3/uL (4.0-10.0)
[2020-10-17 22:47] LABS: ALBUMIN 3.4 GM/DL (3.2-5.2); BILIRUBIN,TOTAL 0.4 MG/DL (0.2-1.0); C REACTIVE PROTEIN QUANTITATIV 14.8 MG/DL (0.00-0.30); CREATININE FOR GFR 1.11 MG/DL (0.55-1.30); FREE T4 1.95 NG/DL (0.76-1.46); GLOMERULAR FILTRATION RATE 51.7 (>39); POTASSIUM SERUM 3.6 MEQ/L (3.5-5.1); THYROID STIMULATING HORMONE 2.24 uIU/ML (0.358-3.740); TOTAL PROTEIN 6.6 GM/DL (6.4-8.2)
== END ==
LOC: M SFHCCAPE 10:30
PROVIDERS: ATTEND Physician Assistant
DX: D72.829 Elevated white blood cell count, unspecified (principal); Z79.899 Other long term (current) drug therapy

== ENCOUNTER → 2020-10-18 | Outpatient (CLI) | payer MEDICARE, BC, OTHER ==
[~2020-10-18] MED LIST changes: +GASTROGRAFIN SOLUTION 30ML (Q9963) As Ordered ONE; +ISOVUE-370 76% 100ML VIAL As Ordered ONE
--- NOTE | 2020-10-18 09:45 | REP ---
INDICATION: DIVERTICULITIS. COMPARISON: Multiple the latest 10/02/2020 TECHNIQUE: Standard helical technique after the intravenous administration of 100 cc Isovue 370 and oral bowel preparatory contrast administration. FINDINGS: There are scattered curvilinear and asymmetric densities seen in the lung bases. The liver and spleen are unchanged. The pancreas, adrenal glands, and kidneys are again seen to be within normal limits. The abdominal aorta and para-aortic regions are again seen to be within normal limits. There is no evidence of free fluid or free air. There is no evidence of a mass or adenopathy. There is a segment of sigmoid colon with abnormally thickened hawkins seen in conjunction with multiple diverticula and fatty infiltration of the mesentery. This is seen in a fashion similar to but not quite as extensive as that seen on the prior exam. There is no change in the osseous structures. IMPRESSION: Sigmoid colon diverticulitis as described above. There is evidence of bilateral lung base subsegmental atelectatic change. <Electronically signed by Mehdi Mejia > 10/18/20 [id number]
== END ==
LOC: M RAD 07:24
PROVIDERS: ATTEND Physician Assistant
DX: K57.92 Diverticulitis of intestine, part unspecified, without perforation or abscess without bleeding (principal); D72.829 Elevated white blood cell count, unspecified; R05 Cough
CPT/HCPCS: 74177; Q9963; Q9967

== ENCOUNTER → 2020-10-22 | Outpatient (REF) | payer MEDICARE, OTHER ==
[~2020-10-22] MED LIST changes: -GASTROGRAFIN SOLUTION 30ML (Q9963) As Ordered ONE; -ISOVUE-370 76% 100ML VIAL As Ordered ONE
[2020-10-22 16:25] LABS: HEMATOCRIT 37.9 % (36.0-47.0); MEAN CORPUSCULAR HEMOGLOBIN 26.7 pg (27.0-33.0); MEAN CORPUSCULAR HGB CONC 31.7 g/dl (32.0-36.5); MEAN CORPUSCULAR VOLUME 84.2 fl (80.0-96.0); PLATELET COUNT, AUTOMATED 263 10^3/uL (150-450); WHITE BLOOD COUNT 7.7 10^3/uL (4.0-10.0)
[2020-10-22 16:50] LABS: BLOOD UREA NITROGEN 8 MG/DL (7-18); CARBON DIOXIDE LEVEL 29 MEQ/L (21-32); CHLORIDE LEVEL 100 MEQ/L (98-107); CREATININE FOR GFR 0.86 MG/DL (0.55-1.30); GLOMERULAR FILTRATION RATE > 60.0 (>39); GLUCOSE, FASTING 104 MG/DL (70-100); POTASSIUM SERUM 3.7 MEQ/L (3.5-5.1); SODIUM LEVEL 136 MEQ/L (136-145)
[2020-10-22 17:07] LABS: BASOPHILS 1 % (0-1); EOSINOPHILS 5 % (0-3); LYMPHOCYTES 4 % (16-44); MONOCYTES 10 % (0-5); NEUTROPHILS 76 % (28-66); PLATELET ESTIMATE NORMAL (NORMAL)
== END ==
LOC: M SFHCCAPE 11:59
PROVIDERS: ATTEND Physician Assistant
DX: K57.92 Diverticulitis of intestine, part unspecified, without perforation or abscess without bleeding (principal)
CPT/HCPCS: 36415; 80048; 85025; 86140; G0463

== ENCOUNTER → 2020-12-19 | Outpatient (REF) | payer MEDICARE, OTHER ==
[2020-12-19 16:57] LABS: FREE T4 1.57 NG/DL (0.76-1.46); THYROID STIMULATING HORMONE 0.235 uIU/ML (0.358-3.740)
== END ==
LOC: M SFHCCAPE 07:07
PROVIDERS: ATTEND Physician Assistant
DX: E03.9 Hypothyroidism, unspecified (principal)

== ENCOUNTER → 2021-02-10 | Outpatient (REF) | payer MEDICARE, OTHER ==
[2021-02-10 16:03] LABS: FREE T4 1.33 NG/DL (0.76-1.46); THYROID STIMULATING HORMONE 5.2 uIU/ML (0.358-3.740)
== END ==
LOC: M SFHCCAPE 07:08
PROVIDERS: ATTEND Physician Assistant
DX: E03.9 Hypothyroidism, unspecified (principal)

== ENCOUNTER → 2021-04-24 | Outpatient (REF) | payer MEDICARE, OTHER ==
[2021-04-24 17:09] LABS: FREE T4 1.46 NG/DL (0.76-1.46); THYROID STIMULATING HORMONE 3.14 uIU/ML (0.358-3.740)
== END ==
LOC: M SFHCCAPE 07:11
PROVIDERS: ATTEND Physician Assistant
DX: E03.9 Hypothyroidism, unspecified (principal)

== ENCOUNTER → 2021-08-25 | Outpatient (REF) | payer MEDICARE, OTHER ==
[~2021-08-25] MED LIST changes: -CEFD1CAP8 PO; +CEFD300C41 PO
[2021-08-25 16:11] LABS: BASO % 0.5 % (0.0-1.0); EOS # 0.2 10^3/uL (0.0-0.5); EOS % 2.7 % (0.0-3.0); HEMATOCRIT 43.9 % (36.0-47.0); HEMOGLOBIN 13.6 g/dl (12.0-15.5); LYMPH # 1.4 10^3/uL (1.5-5.0); LYMPH % 24.4 % (24.0-44.0); MEAN CORPUSCULAR HEMOGLOBIN 28.5 pg (27.0-33.0); MEAN CORPUSCULAR VOLUME 91.8 fl (80.0-96.0); MONO # 0.4 10^3/uL (0.0-0.8); NEUTROPHILS # 3.8 10^3/uL (1.5-8.5); NEUTROPHILS % 65.1 % (36.0-66.0); PLATELET COUNT, AUTOMATED 275 10^3/uL (150-450); RED BLOOD COUNT 4.78 10^6/uL (4.00-5.40); WHITE BLOOD COUNT 5.9 10^3/uL (4.0-10.0)
[2021-08-25 16:36] LABS: HEMOGLOBIN A1c 5.5 %
[2021-08-25 16:49] LABS: ALBUMIN 3.8 GM/DL (3.2-5.2); ALT/SGPT 22 U/L (12-78); BILIRUBIN,TOTAL 0.4 MG/DL (0.2-1.0); BLOOD UREA NITROGEN 11 MG/DL (7-18); CALCIUM LEVEL 9.5 MG/DL (8.8-10.2); CARBON DIOXIDE LEVEL 29 MEQ/L (21-32); CHLORIDE LEVEL 109 MEQ/L (98-107); CHOLESTEROL LEVEL 253 MG/DL (<200); CHOLESTEROL RISK RATIO 5.163 (<5); CREATININE FOR GFR 0.92 MG/DL (0.55-1.30); FREE T4 1.47 NG/DL (0.76-1.46); GLOMERULAR FILTRATION RATE > 60.0 (>39); GLUCOSE, FASTING 85 MG/DL (70-100); HDL CHOLESTEROL 49 MG/DL (>40); LDL CHOLESTEROL 158 MG/DL (<100); NON-HDL-C 204 MG/DL; POTASSIUM SERUM 4.9 MEQ/L (3.5-5.1); SODIUM LEVEL 143 MEQ/L (136-145); TRIGLYCERIDES LEVEL 232 MG/DL (<150)
== END ==
LOC: M SFHCCAPE 07:37
PROVIDERS: ATTEND Physician Assistant
DX: R73.09 Other abnormal glucose (principal); E03.9 Hypothyroidism, unspecified

== ENCOUNTER → 2021-08-27 | Outpatient (REF) | payer MEDICARE, OTHER ==
[2021-08-27 16:51] LABS: ALBUMIN 3.9 GM/DL (3.2-5.2); ALT/SGPT 21 U/L (12-78); BILIRUBIN,TOTAL 0.5 MG/DL (0.2-1.0); BLOOD UREA NITROGEN 13 MG/DL (7-18); CALCIUM LEVEL 9.4 MG/DL (8.8-10.2); CARBON DIOXIDE LEVEL 30 MEQ/L (21-32); CHLORIDE LEVEL 106 MEQ/L (98-107); GLOMERULAR FILTRATION RATE > 60.0 (>39); GLUCOSE, FASTING 85 MG/DL (70-100); POTASSIUM SERUM 4.8 MEQ/L (3.5-5.1); SODIUM LEVEL 139 MEQ/L (136-145); TOTAL PROTEIN 7.1 GM/DL (6.4-8.2)
[2021-08-27 17:27] LABS: FREE THYROXINE INDEX 4.3 % (1.3-4.8); THYROID STIMULATING HORMONE 5.62 uIU/ML (0.358-3.740); THYROXINE (T4) 14.3 UG/DL (4.5-12.0)
== END ==
LOC: M SFHCCAPE 09:24
PROVIDERS: ATTEND Physician Assistant
DX: E03.9 Hypothyroidism, unspecified (principal); R74.8 Abnormal levels of other serum enzymes

== ENCOUNTER → 2021-11-27 | Outpatient (REF) | payer MEDICARE, OTHER ==
[2021-11-27 18:11] LABS: BASO % 0.6 % (0.0-1.0); EOS # 0.2 10^3/uL (0.0-0.5); EOS % 2.6 % (0.0-3.0); HEMATOCRIT 43.9 % (36.0-47.0); HEMOGLOBIN 13.9 g/dl (12.0-15.5); LYMPH # 1.5 10^3/uL (1.5-5.0); LYMPH % 22.4 % (24.0-44.0); MEAN CORPUSCULAR HEMOGLOBIN 28.5 pg (27.0-33.0); MEAN CORPUSCULAR HGB CONC 31.7 g/dl (32.0-36.5); MONO # 0.5 10^3/uL (0.0-0.8); MONO % 7.4 % (2.0-8.0); NEUTROPHILS # 4.4 10^3/uL (1.5-8.5); NEUTROPHILS % 66.5 % (36.0-66.0); PLATELET COUNT, AUTOMATED 265 10^3/uL (150-450); RED BLOOD COUNT 4.88 10^6/uL (4.00-5.40); WHITE BLOOD COUNT 6.7 10^3/uL (4.0-10.0)
[2021-11-27 18:28] LABS: APPEARANCE, URINE HAZY (CLEAR); BACTERIA, URINE AUTO 2+ (NEGATIVE); BILIRUBIN, URINE AUTO NEGATIVE (NEGATIVE); BLOOD, URINE BLOOD NEGATIVE (NEGATIVE); COLOR, URINE YELLOW (YELLOW); GLUCOSE, URINE (UA) AUTO NEGATIVE (NEGATIVE); KETONE, URINE AUTO NEGATIVE (NEGATIVE); LEUKOCYTE ESTERASE, URINE AUTO 2+ (NEGATIVE); NITRITE, URINE AUTO POSITIVE (NEGATIVE); PROTEIN, URINE AUTO NEGATIVE (NEGATIVE); RBC, URINE AUTO 1 /HPF (0-3); SPECIFIC GRAVITY URINE AUTO 1.009 (1.002-1.035); SQUAMOUS EPITHELIAL CELL UR AU 1 /HPF (0-6); UROBILINOGEN, URINE AUTO 0.2 mg/dL (0.0-2.0); WBC, URINE AUTO 28 /HPF (0-3)
[2021-11-27 18:41] LABS: ALBUMIN 3.8 GM/DL (3.2-5.2); ALT/SGPT 23 U/L (12-78); BILIRUBIN,TOTAL 0.6 MG/DL (0.2-1.0); BLOOD UREA NITROGEN 14 MG/DL (7-18); C REACTIVE PROTEIN QUANTITATIV 0.67 MG/DL (0.00-0.30); CARBON DIOXIDE LEVEL 27 MEQ/L (21-32); CHLORIDE LEVEL 105 MEQ/L (98-107); CHOLESTEROL LEVEL 255 MG/DL (<200); CREATININE FOR GFR 0.87 MG/DL (0.55-1.30); FREE T4 1.53 NG/DL (0.76-1.46); GLOMERULAR FILTRATION RATE > 60.0 (>39); GLUCOSE, FASTING 91 MG/DL (70-100); HDL CHOLESTEROL 50 MG/DL (>40); LDL CHOLESTEROL 171 MG/DL (<100); NON-HDL-C 205 MG/DL; POTASSIUM SERUM 4.6 MEQ/L (3.5-5.1); SODIUM LEVEL 139 MEQ/L (136-145); TOTAL PROTEIN 7.1 GM/DL (6.4-8.2); TRIGLYCERIDES LEVEL 171 MG/DL (<150)
[2021-11-27 18:46] LABS: VITAMIN B12 LEVEL 128 PG/ML (247-911)
[2021-11-27 18:51] LABS: ERYTHROCYTE SEDIMENTATION RATE 12 mm/hr (0-30); HEMOGLOBIN A1c 5.5 %
[2021-11-29 11:09] LABS: SSA SJOGRENS A <0.2 AI (0.0-0.9); SSB SJOGRENS B <0.2 AI (0.0-0.9)
== END ==
LOC: M SFHCCAPE 07:12
PROVIDERS: ATTEND Physician Assistant
DX: E03.9 Hypothyroidism, unspecified (principal); R68.2 Dry mouth, unspecified; H04.123 Dry eye syndrome of bilateral lacrimal glands; Z79.899 Other long term (current) drug therapy

== ENCOUNTER → 2021-12-25 | Outpatient (REF) | payer MEDICARE, OTHER ==
[2021-12-25 16:45] LABS: APPEARANCE, URINE CLOUDY (CLEAR); BACTERIA, URINE AUTO 3+ (NEGATIVE); BILIRUBIN, URINE AUTO NEGATIVE (NEGATIVE); BLOOD, URINE BLOOD NEGATIVE (NEGATIVE); COLOR, URINE YELLOW (YELLOW); GLUCOSE, URINE (UA) AUTO NEGATIVE (NEGATIVE); KETONE, URINE AUTO NEGATIVE (NEGATIVE); LEUKOCYTE ESTERASE, URINE AUTO 3+ (NEGATIVE); NITRITE, URINE AUTO NEGATIVE (NEGATIVE); PROTEIN, URINE AUTO NEGATIVE (NEGATIVE); RBC, URINE AUTO 0 /HPF (0-3); SPECIFIC GRAVITY URINE AUTO 1.011 (1.002-1.035); SQUAMOUS EPITHELIAL CELL UR AU 11 /HPF (0-6); UROBILINOGEN, URINE AUTO 0.2 mg/dL (0.0-2.0); WBC, URINE AUTO 104 /HPF (0-3)
== END ==
LOC: M SFHCCAPE 09:35
PROVIDERS: ATTEND Physician Assistant
DX: R82.90 Unspecified abnormal findings in urine (principal)

== ENCOUNTER → 2021-12-29 | Outpatient (REF) | payer MEDICARE, OTHER | LOC: M SFHCCAPE 10:05 | PROVIDERS: ATTEND Physician Assistant | DX: E53.8 Deficiency of other specified B group vitamins (principal) ==

== ENCOUNTER → 2022-05-13 | Outpatient (CLI) | payer MEDICARE, BC, OTHER | LOC: M CARPUL 12:33 | PROVIDERS: ATTEND Family Medicine | DX: R94.31 Abnormal electrocardiogram [ECG] [EKG] (principal) ==

== ENCOUNTER → 2022-07-10 | Outpatient (REF) | payer MEDICARE, BC, OTHER | LOC: M WUC 14:14 | PROVIDERS: ATTEND Physician Assistant | DX: R30.0 Dysuria (principal) ==

== ENCOUNTER → 2022-07-14 | Outpatient (REF) | payer MEDICARE, OTHER ==
[2022-07-14 17:23] LABS: BASO % 0.4 % (0.0-1.0); EOS # 0.2 10^3/uL (0.0-0.5); EOS % 2.4 % (0.0-3.0); HEMOGLOBIN 14.2 g/dl (12.0-15.5); LYMPH # 1.7 10^3/uL (1.5-5.0); LYMPH % 21.6 % (24.0-44.0); MEAN CORPUSCULAR HEMOGLOBIN 28.3 pg (27.0-33.0); MEAN CORPUSCULAR HGB CONC 31.6 g/dl (32.0-36.5); MEAN CORPUSCULAR VOLUME 89.8 fl (80.0-96.0); MONO # 0.5 10^3/uL (0.0-0.8); NEUTROPHILS # 5.3 10^3/uL (1.5-8.5); NEUTROPHILS % 69.2 % (36.0-66.0); PLATELET COUNT, AUTOMATED 271 10^3/uL (150-450); RED BLOOD COUNT 5.01 10^6/uL (4.00-5.40); WHITE BLOOD COUNT 7.6 10^3/uL (4.0-10.0)
[2022-07-14 17:52] LABS: FOLATE 19.4 NG/ML (>5.4); FREE T4 1.03 NG/DL (0.89-1.76); THYROID STIMULATING HORMONE 72.228 uIU/ML (0.55-4.78); TOTAL 25(OH) VITAMIN D 17.9 NG/ML (20.0-100.0)
[2022-07-14 17:54] LABS: VITAMIN B12 LEVEL 213 PG/ML (211-911)
[2022-07-14 19:13] LABS: APPEARANCE, URINE MANUAL CLEAR (CLEAR); COLOR, URINE MANUAL LT YELLOW (YELLOW)
[2022-07-14 19:14] LABS: BILIRUBIN, URINE MANUAL NEGATIVE (NEGATIVE); BLOOD URINE MANUAL NEGATIVE (NEGATIVE); GLUCOSE, URINE (UA) MANUAL NEGATIVE (NEGATIVE); KETONE, URINE MANUAL NEGATIVE (NEGATIVE); LEUKOCYTE ESTERASE, URINE MAN TRACE (NEGATIVE); NITRITE, URINE MANUAL NEGATIVE (NEGATIVE); PH,URINE MAN 6.5 UNITS (5.0 - 7.0); PROTEIN, URINE MANUAL NEGATIVE (NEGATIVE); SPECIFIC GRAVITY,URINE MANUAL 1.005 (1.002-1.035); UROBILINOGEN, URINE MANUAL NORMAL (NORMAL)
[2022-07-14 19:41] LABS: ALBUMIN 4.1 G/DL (3.2-5.2); ALKALINE PHOSPHATASE 157 U/L (46-116); ALT/SGPT 20 U/L (7.0-40); AST/SGOT 17 U/L (<34); BILIRUBIN,TOTAL 0.7 MG/DL (0.3-1.2); BLOOD UREA NITROGEN 11 MG/DL (9-23); CALCIUM LEVEL 9.8 MG/DL (8.3-10.6); CARBON DIOXIDE LEVEL 27 MMOL/L (20-31); CHLORIDE LEVEL 100 MMOL/L (98-107); CREATININE FOR GFR 0.86 MG/DL (0.55-1.30); GLOMERULAR FILTRATION RATE > 60.0 (>39); GLUCOSE, FASTING 89 MG/DL (74-106); POTASSIUM SERUM 4.7 MMOL/L (3.5-5.1); SODIUM LEVEL 137 MMOL/L (136-145); TOTAL PROTEIN 7.1 G/DL (5.7-8.2)
[2022-07-14 19:50] LABS: BACTERIA, URINE SMALL AMOUNT; HYALINE CAST, URINE NONE SEEN /lpf (0-1); RBC, URINE NONE SEEN /hpf (0-3); SQUAMOUS EPITHELIAL CELL URINE MOD AMOUNT /hpf (SMALL AMT)
[2022-07-14 19:51] LABS: AMORPHOUS SEDIMENT, URINE SMALL AMOUNT (NEGATIVE)
[2022-07-14 21:18] LABS: HEMOGLOBIN A1c 5.2 % (4.0-6.0)
[2022-07-17 17:07] LABS: ANTI-PARIETAL CELL ANTIBODY 76.6 Units (0.0-20.0)
== END ==
LOC: M SFHCCAPE 10:02
PROVIDERS: ATTEND Physician Assistant
DX: R74.8 Abnormal levels of other serum enzymes (principal); E53.8 Deficiency of other specified B group vitamins; E03.9 Hypothyroidism, unspecified; R42 Dizziness and giddiness; Z79.899 Other long term (current) drug therapy

== ENCOUNTER → 2022-11-16 | Outpatient (REF) | payer MEDICARE, OTHER ==
[2022-11-16 17:03] LABS: BASO # 0.1 10^3/uL (0.0-0.2); BASO % 0.8 % (0.0-1.0); EOS # 0.2 10^3/uL (0.0-0.5); EOS % 2.9 % (0.0-3.0); HEMATOCRIT 42.7 % (36.0-47.0); HEMOGLOBIN 13.5 g/dl (12.0-15.5); LYMPH # 1.2 10^3/uL (1.5-5.0); LYMPH % 19.8 % (24.0-44.0); MEAN CORPUSCULAR HGB CONC 31.6 g/dl (32.0-36.5); MEAN CORPUSCULAR VOLUME 88.4 fl (80.0-96.0); MONO # 0.6 10^3/uL (0.0-0.8); MONO % 8.8 % (2.0-8.0); NEUTROPHILS # 4.2 10^3/uL (1.5-8.5); NEUTROPHILS % 67.4 % (36.0-66.0); PLATELET COUNT, AUTOMATED 262 10^3/uL (150-450); RED BLOOD COUNT 4.83 10^6/uL (4.00-5.40); WHITE BLOOD COUNT 6.3 10^3/uL (4.0-10.0)
[2022-11-16 17:09] LABS: TOTAL 25(OH) VITAMIN D 38.8 NG/ML (20.0-100.0)
[2022-11-16 17:10] LABS: FOLATE 18.9 NG/ML (>5.4); VITAMIN B12 LEVEL 160 PG/ML (211-911)
[2022-11-16 17:23] LABS: ALBUMIN 3.6 G/DL (3.2-5.2); ALKALINE PHOSPHATASE 146 U/L (46-116); ALT/SGPT 24 U/L (7.0-40); AST/SGOT < 8 U/L (<34); BILIRUBIN,TOTAL 0.5 MG/DL (0.3-1.2); BLOOD UREA NITROGEN 13 MG/DL (9-23); CALCIUM LEVEL 9.4 MG/DL (8.3-10.6); CARBON DIOXIDE LEVEL 28 MMOL/L (20-31); CHLORIDE LEVEL 105 MMOL/L (98-107); CREATININE FOR GFR 0.86 MG/DL (0.55-1.30); GLOMERULAR FILTRATION RATE > 60.0 (>39); GLUCOSE, FASTING 92 MG/DL (74-106); POTASSIUM SERUM 4.2 MMOL/L (3.5-5.1); SODIUM LEVEL 139 MMOL/L (136-145); TOTAL PROTEIN 6.5 G/DL (5.7-8.2)
[2022-11-16 17:55] LABS: HEMOGLOBIN A1c 5.5 % (4.0-6.0)
== END ==
LOC: M SFHCCAPE 08:46
PROVIDERS: ATTEND Physician Assistant
DX: R73.09 Other abnormal glucose (principal); E53.8 Deficiency of other specified B group vitamins; E03.9 Hypothyroidism, unspecified; E55.9 Vitamin D deficiency, unspecified; Z79.899 Other long term (current) drug therapy

== ENCOUNTER → 2022-11-16 | Outpatient (REF) | payer MEDICARE, OTHER ==
[2022-11-16 18:02] LABS: FREE T4 1.23 NG/DL (0.89-1.76); THYROID STIMULATING HORMONE 21.288 uIU/ML (0.55-4.78)
[2022-11-16 18:12] LABS: THYROID PEROXIDASE ANTIBODY > 1300.0 U/ML (<60.0)
== END ==
LOC: M LABDRWCV 16:49
PROVIDERS: ATTEND Internal Medicine Endocrinology, Diabetes & Metabolism
DX: E03.9 Hypothyroidism, unspecified (principal)

== ENCOUNTER → 2023-02-08 | Outpatient (CLI) | payer MEDICARE, OTHER ==
[2023-02-08 10:42] LABS: FREE T4 1.41 NG/DL (0.89-1.76); THYROID STIMULATING HORMONE 5.173 uIU/ML (0.55-4.78)
== END ==
LOC: M WUC 08:09
PROVIDERS: ATTEND Internal Medicine Endocrinology, Diabetes & Metabolism
DX: E03.9 Hypothyroidism, unspecified (principal); Z79.890 Hormone replacement therapy

== ENCOUNTER 2023-03-02 15:28 | Emergency (ER) | payer MEDICARE, OTHER ==
[~2023-03-02] VITALS: Ht 157.5 cm; Wt 76.9 kg
[2023-03-02 15:29] VITALS: TEMP 97.4
[2023-03-02 18:17] LABS: BASO % 0.4 % (0.0-1.0); EOS # 0.2 10^3/uL (0.0-0.5); EOS % 1.9 % (0.0-3.0); HEMATOCRIT 43.9 % (36.0-47.0); HEMOGLOBIN 13.9 g/dl (12.0-15.5); LYMPH # 1.5 10^3/uL (1.5-5.0); LYMPH % 19.3 % (24.0-44.0); MEAN CORPUSCULAR HEMOGLOBIN 26.9 pg (27.0-33.0); MEAN CORPUSCULAR HGB CONC 31.7 g/dl (32.0-36.5); MEAN CORPUSCULAR VOLUME 85.1 fl (80.0-96.0); MONO # 0.6 10^3/uL (0.0-0.8); NEUTROPHILS # 5.5 10^3/uL (1.5-8.5); NEUTROPHILS % 69.9 % (36.0-66.0); PLATELET COUNT, AUTOMATED 246 10^3/uL (150-450); RED BLOOD COUNT 5.16 10^6/uL (4.00-5.40); WHITE BLOOD COUNT 7.8 10^3/uL (4.0-10.0)
[2023-03-02 18:27] LABS: CK-MB VALUE MASS < 1.0 NG/ML (<3.6)
[2023-03-02 18:29] LABS: ETHYL ALCOHOL (ETHANOL) < 0.003 % (0.000-0.010)
[2023-03-02 18:30] LABS: ACETAMINOPHEN LEVEL < 2.0 UG/ML (10.0-20.0); ALKALINE PHOSPHATASE 154 U/L (46-116); ALT/SGPT 27 U/L (7.0-40); AST/SGOT 15 U/L (<34); BILIRUBIN,DIRECT 0.2 MG/DL (<0.4); BILIRUBIN,TOTAL 0.6 MG/DL (0.3-1.2); BLOOD UREA NITROGEN 10 MG/DL (9-23); CALCIUM LEVEL 9.4 MG/DL (8.3-10.6); CARBON DIOXIDE LEVEL 26 MMOL/L (20-31); CHLORIDE LEVEL 102 MMOL/L (98-107); CPK CREATINE PHOSPHOKINASE 71 U/L (34-145); CREATININE FOR GFR 0.75 MG/DL (0.55-1.30); GLOMERULAR FILTRATION RATE > 60.0 (>39); GLUCOSE, FASTING 100 MG/DL (74-106); POTASSIUM SERUM 3.8 MMOL/L (3.5-5.1); SALICYLATE LEVEL < 3.0 MG/DL (<30); SODIUM LEVEL 138 MMOL/L (136-145); TOTAL PROTEIN 6.9 G/DL (5.7-8.2)
[2023-03-02 18:31] LABS: THYROID STIMULATING HORMONE 2.357 uIU/ML (0.55-4.78); THYROXINE (T4) 15.7 UG/DL (4.5-10.9)
[2023-03-02 18:33] LABS: FREE THYROXINE INDEX 4.2 % (1.3-4.8)
[2023-03-02] MEDS ORDERED: LEVO1TAB39 PO (18:55)
[2023-03-02 18:58] VITALS: O2SAT 97
[2023-03-02 19:00] VITALS: BP 157/67
== END 2023-03-02 19:18 | disposition home or self-care (01) ==
LOC: M ED 15:28
DX: N39.0 Urinary tract infection, site not specified (principal); G90.09 Other idiopathic peripheral autonomic neuropathy; K21.9 Gastro-esophageal reflux disease without esophagitis; E03.9 Hypothyroidism, unspecified; Z88.0 Allergy status to penicillin; Z88.2 Allergy status to sulfonamides; Z88.8 Allergy status to other drugs, medicaments and biological substances; Z79.899 Other long term (current) drug therapy

== ENCOUNTER → 2023-05-12 | Outpatient (CLI) | payer MEDICARE, BC, OTHER ==
[~2023-05-12] MED LIST changes: +BENZ200C70 PO; -CEFD300C41 PO; +CEFD300C42 PO; +LEVO1TAB39 PO; +MOXI0.5S; +VERA40TA PO
== END ==
LOC: M WHC 09:10
PROVIDERS: ATTEND Obstetrics & Gynecology
DX: Z12.31 Encounter for screening mammogram for malignant neoplasm of breast (principal); Z13.820 Encounter for screening for osteoporosis

== ENCOUNTER → 2023-05-20 | Outpatient (REF) | payer MEDICARE, OTHER ==
[2023-05-20 17:45] LABS: BASO % 0.5 % (0.0-1.0); EOS # 0.2 10^3/uL (0.0-0.5); EOS % 2.8 % (0.0-3.0); HEMATOCRIT 43.3 % (36.0-47.0); HEMOGLOBIN 13.7 g/dl (12.0-15.5); LYMPH # 1.4 10^3/uL (1.5-5.0); LYMPH % 20.9 % (24.0-44.0); MEAN CORPUSCULAR HEMOGLOBIN 27.5 pg (27.0-33.0); MEAN CORPUSCULAR HGB CONC 31.6 g/dl (32.0-36.5); MEAN CORPUSCULAR VOLUME 86.8 fl (80.0-96.0); MONO # 0.5 10^3/uL (0.0-0.8); MONO % 7.8 % (2.0-8.0); NEUTROPHILS # 4.4 10^3/uL (1.5-8.5); NEUTROPHILS % 67.5 % (36.0-66.0); PLATELET COUNT, AUTOMATED 250 10^3/uL (150-450); RED BLOOD COUNT 4.99 10^6/uL (4.00-5.40); WHITE BLOOD COUNT 6.5 10^3/uL (4.0-10.0)
[2023-05-20 18:03] LABS: ALBUMIN 3.7 G/DL (3.2-5.2); ALKALINE PHOSPHATASE 150 U/L (46-116); ALT/SGPT 26 U/L (7.0-40); AST/SGOT 17 U/L (<34); BILIRUBIN,TOTAL 0.5 MG/DL (0.3-1.2); BLOOD UREA NITROGEN 9 MG/DL (9-23); CALCIUM LEVEL 9.5 MG/DL (8.3-10.6); CARBON DIOXIDE LEVEL 30 MMOL/L (20-31); CHLORIDE LEVEL 103 MMOL/L (98-107); CHOLESTEROL LEVEL 260 MG/DL (<200); CHOLESTEROL RISK RATIO 5.61 (<5); CREATININE FOR GFR 0.77 MG/DL (0.55-1.30); FREE T4 1.23 NG/DL (0.89-1.76); GLOMERULAR FILTRATION RATE > 60.0 (>39); GLUCOSE, FASTING 90 MG/DL (74-106); HDL CHOLESTEROL 46.3 MG/DL (>40); LDL CHOLESTEROL 168.3 MG/DL (<100); NON-HDL-C 213.7 MG/DL; POTASSIUM SERUM 4.7 MMOL/L (3.5-5.1); SODIUM LEVEL 140 MMOL/L (136-145); THYROID STIMULATING HORMONE 10.362 uIU/ML (0.55-4.78); TOTAL PROTEIN 6.5 G/DL (5.7-8.2); TRIGLYCERIDES LEVEL 227 MG/DL (<150); VITAMIN B12 LEVEL 331 PG/ML (211-911)
[2023-05-20 18:24] LABS: HEMOGLOBIN A1c 5.4 % (4.0-6.0)
== END ==
LOC: M SFHCCAPE 08:12
PROVIDERS: ATTEND Physician Assistant Medical
DX: E03.9 Hypothyroidism, unspecified (principal); E53.8 Deficiency of other specified B group vitamins; R73.09 Other abnormal glucose; E78.5 Hyperlipidemia, unspecified

== ENCOUNTER → 2023-08-24 | Outpatient (CLI) | payer MEDICARE, BC, OTHER ==
[~2023-08-24] MED LIST changes: +CEFD1CAP9 PO; -CEFD300C42 PO
[2023-08-24 11:07] LABS: FREE T4 1.24 NG/DL (0.89-1.76); THYROID STIMULATING HORMONE 21.366 uIU/ML (0.55-4.78)
== END ==
LOC: M WUC 08:01
PROVIDERS: ATTEND Internal Medicine Endocrinology, Diabetes & Metabolism
DX: E03.9 Hypothyroidism, unspecified (principal)

== ENCOUNTER → 2023-09-13 | Outpatient (REF) | payer MEDICARE, BC, OTHER | LOC: M SFHCCAPE 17:19 | PROVIDERS: ATTEND Physician Assistant Medical | DX: R35.0 Frequency of micturition (principal) ==

== ENCOUNTER → 2023-11-23 | Outpatient (REF) | payer MEDICARE, BC ==
[2023-11-23 17:06] LABS: BASO % 0.4 % (0.0-1.0); EOS # 0.2 10^3/uL (0.0-0.5); EOS % 2.4 % (0.0-3.0); HEMATOCRIT 43.6 % (36.0-47.0); HEMOGLOBIN 13.6 g/dl (12.0-15.5); LYMPH # 1.2 10^3/uL (1.5-5.0); LYMPH % 16.2 % (24.0-44.0); MEAN CORPUSCULAR HEMOGLOBIN 26.9 pg (27.0-33.0); MEAN CORPUSCULAR HGB CONC 31.2 g/dl (32.0-36.5); MEAN CORPUSCULAR VOLUME 86.2 fl (80.0-96.0); MONO # 0.5 10^3/uL (0.0-0.8); MONO % 6.8 % (2.0-8.0); NEUTROPHILS # 5.5 10^3/uL (1.5-8.5); NEUTROPHILS % 73.8 % (36.0-66.0); PLATELET COUNT, AUTOMATED 247 10^3/uL (150-450); RED BLOOD COUNT 5.06 10^6/uL (4.00-5.40); WHITE BLOOD COUNT 7.4 10^3/uL (4.0-10.0)
[2023-11-23 17:07] LABS: ALBUMIN 3.6 G/DL (3.2-5.2); ALKALINE PHOSPHATASE 168 U/L (46-116); ALT/SGPT 25 U/L (7.0-40); AST/SGOT 13 U/L (<34); BILIRUBIN,TOTAL 0.4 MG/DL (0.3-1.2); BLOOD UREA NITROGEN 14 MG/DL (9-23); CALCIUM LEVEL 9.5 MG/DL (8.3-10.6); CARBON DIOXIDE LEVEL 29 MMOL/L (20-31); CHLORIDE LEVEL 108 MMOL/L (98-107); CHOLESTEROL LEVEL 247 MG/DL (<200); CHOLESTEROL RISK RATIO 5.44 (<5); CREATININE FOR GFR 0.85 MG/DL (0.55-1.30); GLOMERULAR FILTRATION RATE > 60.0 (>39); GLUCOSE, FASTING 100 MG/DL (74-106); HDL CHOLESTEROL 45.4 MG/DL (>40); LDL CHOLESTEROL 156.2 MG/DL (<100); NON-HDL-C 201.6 MG/DL; POTASSIUM SERUM 4.2 MMOL/L (3.5-5.1); SODIUM LEVEL 143 MMOL/L (136-145); TOTAL PROTEIN 6.5 G/DL (5.7-8.2); TRIGLYCERIDES LEVEL 227 MG/DL (<150)
[2023-11-23 17:17] LABS: HEMOGLOBIN A1c 5.6 % (4.0-6.0)
[2023-11-23 17:31] LABS: APPEARANCE, URINE CLOUDY (CLEAR); BACTERIA, URINE AUTO 3+ (NEGATIVE); BILIRUBIN, URINE AUTO NEGATIVE (NEGATIVE); BLOOD, URINE BLOOD NEGATIVE (NEGATIVE); COLOR, URINE AMBER (YELLOW); GLUCOSE, URINE (UA) AUTO NEGATIVE (NEGATIVE); KETONE, URINE AUTO NEGATIVE (NEGATIVE); LEUKOCYTE ESTERASE, URINE AUTO 3+ (NEGATIVE); NITRITE, URINE AUTO POSITIVE (NEGATIVE); PROTEIN, URINE AUTO NEGATIVE (NEGATIVE); RBC, URINE AUTO 1 /HPF (0-3); SPECIFIC GRAVITY URINE AUTO 1.008 (1.002-1.035); SQUAMOUS EPITHELIAL CELL UR AU 0 /HPF (0-6); UROBILINOGEN, URINE AUTO 0.2 mg/dL (0.0-2.0); WBC, URINE AUTO 77 /HPF (0-3)
== END ==
LOC: M SFHCCAPE 08:12
PROVIDERS: ATTEND Physician Assistant Medical
DX: I10 Essential (primary) hypertension (principal); K21.00 Gastro-esophageal reflux disease with esophagitis, without bleeding; E78.5 Hyperlipidemia, unspecified; E03.9 Hypothyroidism, unspecified; R82.90 Unspecified abnormal findings in urine; Z79.899 Other long term (current) drug therapy

== ENCOUNTER → 2023-11-25 | Outpatient (REF) | payer MEDICARE, BC | LOC: M SFHCCAPE 13:06 | PROVIDERS: ATTEND Physician Assistant Medical | DX: R30.0 Dysuria (principal) ==

== ENCOUNTER → 2024-02-09 | Outpatient (REF) | payer MEDICARE, BC | LOC: M SFHCCAPE 10:45 | PROVIDERS: ATTEND Physician Assistant Medical | DX: R35.0 Frequency of micturition (principal) ==

== ENCOUNTER → 2024-02-09 | Outpatient (CLI) | payer MEDICARE, BC | LOC: M CLY 13:01 | PROVIDERS: ATTEND Physician Assistant Medical | DX: R07.89 Other chest pain (principal) ==

== ENCOUNTER → 2024-02-14 | Outpatient (CLI) | payer MEDICARE, BC | LOC: M WUC 08:06 | PROVIDERS: ATTEND Nurse Practitioner Family | DX: E03.9 Hypothyroidism, unspecified (principal) ==

== ENCOUNTER → 2024-05-22 | Outpatient (REF) | payer MEDICARE, BC ==
[~2024-05-22] MED LIST changes: +IBAN150T10; -IBAN150T6
[2024-05-22 16:55] LABS: BASO % 0.5 % (0.0-1.0); EOS # 0.1 10^3/uL (0.0-0.5); EOS % 2.2 % (0.0-3.0); HEMATOCRIT 44.3 % (36.0-47.0); HEMOGLOBIN 13.5 g/dl (12.0-15.5); LYMPH # 1.1 10^3/uL (1.5-5.0); LYMPH % 17.4 % (24.0-44.0); MEAN CORPUSCULAR HEMOGLOBIN 26.2 pg (27.0-33.0); MEAN CORPUSCULAR HGB CONC 30.5 g/dl (32.0-36.5); MEAN CORPUSCULAR VOLUME 85.9 fl (80.0-96.0); MONO # 0.5 10^3/uL (0.0-0.8); NEUTROPHILS # 4.6 10^3/uL (1.5-8.5); NEUTROPHILS % 71.6 % (36.0-66.0); PLATELET COUNT, AUTOMATED 260 10^3/uL (150-450); RED BLOOD COUNT 5.16 10^6/uL (4.00-5.40); WHITE BLOOD COUNT 6.5 10^3/uL (4.0-10.0)
[2024-05-22 17:02] LABS: ALBUMIN 3.6 G/DL (3.2-5.2); ALKALINE PHOSPHATASE 156 U/L (35-104); ALT/SGPT 25 U/L (7.0-40); AST/SGOT 14 U/L (<34); BILIRUBIN,TOTAL 0.4 MG/DL (0.3-1.2); BLOOD UREA NITROGEN 10 MG/DL (9-23); CARBON DIOXIDE LEVEL 28 MMOL/L (20-31); CHLORIDE LEVEL 105 MMOL/L (98-107); CREATININE FOR GFR 0.83 MG/DL (0.55-1.30); GLOMERULAR FILTRATION RATE > 60.0 (>39); GLUCOSE, FASTING 86 MG/DL (74-106); POTASSIUM SERUM 4.5 MMOL/L (3.5-5.1); SODIUM LEVEL 138 MMOL/L (136-145)
[2024-05-22 17:04] LABS: TOTAL 25(OH) VITAMIN D 24.9 NG/ML (20.0-100.0)
[2024-05-22 17:05] LABS: VITAMIN B12 LEVEL 233 PG/ML (211-911)
[2024-05-22 17:16] LABS: FOLATE 14.8 NG/ML (>5.4)
== END ==
LOC: M SFHCCAPE 08:15
PROVIDERS: ATTEND Physician Assistant Medical
DX: J30.9 Allergic rhinitis, unspecified (principal); E53.8 Deficiency of other specified B group vitamins; M85.89 Other specified disorders of bone density and structure, multiple sites; K21.00 Gastro-esophageal reflux disease with esophagitis, without bleeding; R74.8 Abnormal levels of other serum enzymes

== ENCOUNTER → 2024-06-06 | Outpatient (CLI) | payer MEDICARE, BC ==
[2024-06-06 17:11] LABS: HEMOGLOBIN A1c 5.6 % (4.0-6.0)
[2024-06-06 17:20] LABS: BASO # 0.1 10^3/uL (0.0-0.2); BASO % 0.8 % (0.0-1.0); EOS # 0.2 10^3/uL (0.0-0.5); EOS % 2.7 % (0.0-3.0); HEMATOCRIT 44.1 % (36.0-47.0); HEMOGLOBIN 13.7 g/dl (12.0-15.5); LYMPH # 1.5 10^3/uL (1.5-5.0); MEAN CORPUSCULAR HEMOGLOBIN 26.6 pg (27.0-33.0); MEAN CORPUSCULAR HGB CONC 31.1 g/dl (32.0-36.5); MEAN CORPUSCULAR VOLUME 85.5 fl (80.0-96.0); MONO # 0.6 10^3/uL (0.0-0.8); MONO % 7.7 % (2.0-8.0); NEUTROPHILS # 5.2 10^3/uL (1.5-8.5); NEUTROPHILS % 68.4 % (36.0-66.0); PLATELET COUNT, AUTOMATED 248 10^3/uL (150-450); RED BLOOD COUNT 5.16 10^6/uL (4.00-5.40); WHITE BLOOD COUNT 7.7 10^3/uL (4.0-10.0)
[2024-06-06 17:30] LABS: BLOOD UREA NITROGEN 10 MG/DL (9-23); CALCIUM LEVEL 9.8 MG/DL (8.3-10.6); CARBON DIOXIDE LEVEL 29 MMOL/L (20-31); CHLORIDE LEVEL 104 MMOL/L (98-107); CHOLESTEROL LEVEL 231 MG/DL (<200); CHOLESTEROL RISK RATIO 4.91 (<5); CREATININE FOR GFR 0.79 MG/DL (0.55-1.30); GLOMERULAR FILTRATION RATE > 60.0 (>39); GLUCOSE, FASTING 93 MG/DL (74-106); POTASSIUM SERUM 4.1 MMOL/L (3.5-5.1); SODIUM LEVEL 137 MMOL/L (136-145); TRIGLYCERIDES LEVEL 195 MG/DL (<150)
== END ==
LOC: M WUC 11:14
PROVIDERS: ATTEND Internal Medicine Cardiovascular Disease
DX: I11.0 Hypertensive heart disease with heart failure (principal); G45.9 Transient cerebral ischemic attack, unspecified; R07.89 Other chest pain; I50.9 Heart failure, unspecified; I48.0 Paroxysmal atrial fibrillation; Z13.1 Encounter for screening for diabetes mellitus; Q28.2 Arteriovenous malformation of cerebral vessels

== ENCOUNTER → 2024-07-03 | Outpatient (CLI) | payer MEDICARE, BC | LOC: M WHC 05-31 12:25 | PROVIDERS: ATTEND Obstetrics & Gynecology | DX: Z12.31 Encounter for screening mammogram for malignant neoplasm of breast (principal) ==

== ENCOUNTER → 2024-08-28 | Outpatient (CLI) | payer MEDICARE, BC ==
[2024-08-28 18:01] LABS: FREE T4 1.34 NG/DL (0.89-1.76); THYROID STIMULATING HORMONE 13.766 uIU/ML (0.55-4.78)
== END ==
LOC: M WUC 12:47
PROVIDERS: ATTEND Nurse Practitioner Family
DX: E03.9 Hypothyroidism, unspecified (principal)

== ENCOUNTER 2024-09-04 08:41 | Emergency (ER) | payer MEDICARE, BC ==
[~2024-09-04] VITALS: Ht 157.5 cm; Wt 77.1 kg
[~2024-09-04 08:41] MED LIST changes: -LEVO75TA4; -LOTE5DRO9; -OFLO5DRO
[2024-09-04 09:58] LABS: HEMATOCRIT 43.3 % (36.0-47.0); HEMOGLOBIN 13.9 g/dl (12.0-15.5); MEAN CORPUSCULAR HEMOGLOBIN 27.1 pg (27.0-33.0); MEAN CORPUSCULAR HGB CONC 32.1 g/dl (32.0-36.5); MEAN CORPUSCULAR VOLUME 84.6 fl (80.0-96.0); PLATELET COUNT, AUTOMATED 244 10^3/uL (150-450); RED BLOOD COUNT 5.12 10^6/uL (4.00-5.40); WHITE BLOOD COUNT 7.4 10^3/uL (4.0-10.0)
[2024-09-04 10:22] LABS: BLOOD UREA NITROGEN 9 MG/DL (9-23); CALCIUM LEVEL 9.1 MG/DL (8.3-10.6); CARBON DIOXIDE LEVEL 26 MMOL/L (20-31); CHLORIDE LEVEL 101 MMOL/L (98-107); CREATININE FOR GFR 0.58 MG/DL (0.55-1.30); GLOMERULAR FILTRATION RATE > 60.0 (>39); GLUCOSE, FASTING 104 MG/DL (74-106); POTASSIUM SERUM 3.9 MMOL/L (3.5-5.1); SODIUM LEVEL 135 MMOL/L (136-145)
[2024-09-04 10:25] LABS: FREE THYROXINE INDEX 3.4 % (1.3-4.8); THYROID STIMULATING HORMONE 21.105 uIU/ML (0.55-4.78)
[2024-09-04] MEDS ORDERED: LEVO75TA4 (12:11)
[2024-09-04] MEDS ORDERED: LOTE5DRO9 (12:11)
[2024-09-04] MEDS ORDERED: OFLO5DRO (12:11)
[2024-09-04 14:17] VITALS: BP 178/81; TEMP 97.8; O2SAT 96
== END 2024-09-04 14:18 | disposition home or self-care (01) ==
LOC: M ED 08:41
DX: R53.1 Weakness (principal); R79.9 Abnormal finding of blood chemistry, unspecified; I10 Essential (primary) hypertension; E03.9 Hypothyroidism, unspecified; Z88.0 Allergy status to penicillin; Z88.2 Allergy status to sulfonamides; Z88.6 Allergy status to analgesic agent; Z88.8 Allergy status to other drugs, medicaments and biological substances; Z79.899 Other long term (current) drug therapy

== ENCOUNTER → 2024-09-04 | Outpatient (REF) | payer MEDICARE, BC ==
[~2024-09-04] MED LIST changes: +LEVO75TA4; +LOTE5DRO9; +OFLO5DRO
== END ==
LOC: M LAB REF 11:19
PROVIDERS: ATTEND Nurse Practitioner Family
DX: E03.9 Hypothyroidism, unspecified (principal)

== ENCOUNTER → 2024-11-15 | Outpatient (REF) | payer MEDICARE, BC ==
[~2024-11-15] MED LIST changes: +LEVO75TA4; +LOTE5DRO9; +OFLO5DRO
[2024-11-15 17:49] LABS: BASO % 0.6 % (0.0-1.0); EOS # 0.2 10^3/uL (0.0-0.5); EOS % 2.9 % (0.0-3.0); HEMATOCRIT 44.3 % (36.0-47.0); LYMPH # 1.2 10^3/uL (1.5-5.0); LYMPH % 19.1 % (24.0-44.0); MEAN CORPUSCULAR HEMOGLOBIN 26.9 pg (27.0-33.0); MEAN CORPUSCULAR HGB CONC 31.6 g/dl (32.0-36.5); MONO # 0.5 10^3/uL (0.0-0.8); NEUTROPHILS # 4.3 10^3/uL (1.5-8.5); NEUTROPHILS % 69.1 % (36.0-66.0); PLATELET COUNT, AUTOMATED 267 10^3/uL (150-450); RED BLOOD COUNT 5.21 10^6/uL (4.00-5.40); WHITE BLOOD COUNT 6.3 10^3/uL (4.0-10.0)
[2024-11-15 17:52] LABS: ALBUMIN 3.7 G/DL (3.2-5.2); BILIRUBIN,TOTAL 0.5 MG/DL (0.3-1.2); CALCIUM LEVEL 9.4 MG/DL (8.3-10.6); CHOLESTEROL RISK RATIO 5.13 (<5); CREATININE FOR GFR 0.76 MG/DL (0.55-1.30); GLOMERULAR FILTRATION RATE 82.2 (>39); HDL CHOLESTEROL 48.5 MG/DL (>40); LDL CHOLESTEROL 150.5 MG/DL (<100); NON-HDL-C 200.5 MG/DL; POTASSIUM SERUM 4.3 MMOL/L (3.5-5.1); PTH INTACT 73.9 PG/ML (18.5-88.0); TOTAL PROTEIN 6.6 G/DL (5.7-8.2)
[2024-11-15 18:24] LABS: HEMOGLOBIN A1c 5.6 % (4.0-6.0)
== END ==
LOC: M SFHCCAPE 07:46
PROVIDERS: ATTEND Physician Assistant Medical
DX: Z00.00 Encounter for general adult medical examination without abnormal findings (principal); E53.8 Deficiency of other specified B group vitamins; R74.8 Abnormal levels of other serum enzymes; E03.9 Hypothyroidism, unspecified; E78.5 Hyperlipidemia, unspecified; K21.9 Gastro-esophageal reflux disease without esophagitis

== ENCOUNTER → 2024-11-22 | Outpatient (REF) | payer MEDICARE, OTHER | LOC: M SFHCCAPE 17:07 | PROVIDERS: ATTEND Physician Assistant Medical | DX: R30.0 Dysuria (principal) ==

== ENCOUNTER → 2025-03-07 | Outpatient (CLI) | payer MEDICARE, BC | LOC: M RAD 15:30 | PROVIDERS: ATTEND Physician Assistant | DX: R33.9 Retention of urine, unspecified (principal) ==

== ENCOUNTER → 2025-03-19 | Outpatient (CLI) | payer MEDICARE, BC | LOC: M WUC 09:05 | PROVIDERS: ATTEND Nurse Practitioner Family | DX: E03.9 Hypothyroidism, unspecified (principal) ==

== ENCOUNTER → 2025-05-22 | Outpatient (REF) | payer MEDICARE, BC ==
[2025-05-22 17:55] LABS: BASO # 0.0 10^3/uL (0.0-0.2); BASO % 0.6 % (0.0-1.0); EOS # 0.2 10^3/uL (0.0-0.5); EOS % 3.2 % (0.0-3.0); LYMPH # 1.3 10^3/uL (1.5-5.0); LYMPH % 19.9 % (24.0-44.0); MONO # 0.6 10^3/uL (0.0-0.8); MONO % 8.5 % (2.0-8.0); NEUTROPHILS # 4.4 10^3/uL (1.5-8.5); NEUTROPHILS % 67.3 % (36.0-66.0); PLATELET COUNT, AUTOMATED 271 10^3/uL (150-450)
[2025-05-22 18:01] LABS: ALT/SGPT 26.0 U/L (7.0-40); AST/SGOT 21.0 U/L (<34); CALCIUM LEVEL 9.2 MG/DL (8.3-10.6); CARBON DIOXIDE LEVEL 28.0 MMOL/L (20-31); CHLORIDE LEVEL 101.0 MMOL/L (98-107); CREATININE FOR GFR 0.8 MG/DL (0.55-1.30); GLOMERULAR FILTRATION RATE 77.3 (>39); POTASSIUM SERUM 4.2 MMOL/L (3.5-5.1); SODIUM LEVEL 139.0 MMOL/L (136-145)
== END ==
LOC: M SFHCCAPE 07:20
PROVIDERS: ATTEND Physician Assistant Medical
DX: E03.9 Hypothyroidism, unspecified (principal); K21.9 Gastro-esophageal reflux disease without esophagitis; R74.8 Abnormal levels of other serum enzymes